=== PATIENT | male | born 1960 | race Two or more races ===

== ENCOUNTER 2016-05-27 08:14 | Observation (INO) | payer OTHER, MEDICAID ==
[~2016-05-27] VITALS: Ht 172.7 cm; Wt 134.6 kg
[~2016-05-27 08:14] MED LIST: ABIL15TA2 PO; ALBU0.086 NEB; ALBU1AER INH; ANDROGEL TOP; BUPR-197 PO; FLUT50SP EACH NARE; HYDR2.5%T PR; HYDR50IN3 IM; LORA-392 PO; MELO7.5 PO; NAPR500 PO; OFLO1DRO8 LEFT EYE; OMEP20TA PO; PERC5TAB12 PO; PRAV20 PO; PRED20 PO; PROM25TA5 PO; ROBA750T3 PO; ROBISYP6 PO; nebulizer
[2016-05-27] MEDS ORDERED: METOPROLOL TARTRATE 25 MG TAB PO PRN (08:45)
[2016-05-27] MEDS ORDERED: ceFAZolin 2 GM PREMIX 50 ML IV SCH (08:45)
[2016-05-27] MEDS ORDERED: SODIUM CHLORID 0.9% 500 ML IV SCH (08:45)
[2016-05-27] MEDS: LACTATED RINGER'S 1000 ML IV SCH (08:45)
[2016-05-27] MEDS ORDERED: INSULIN HUMAN REGULAR 1,000 UNITS/10 ML VIAL SQ PRN (08:45)
[2016-05-27 09:09] LABS: AUTOMATED NEUTROPHIL # 5.6 TH/MM3 (1.8-7.7); BASOPHIL % 0.3 % (0.0-2.0); EOSINOPHIL # 0.1 TH/MM3 (0-0.4); EOSINOPHIL % 1.3 % (0.0-4.0); HEMATOCRIT 41.8 % (39.0-51.0); HEMO FLAGS DIFF FINAL; LYMPH % 31.8 % (9.0-44.0); MEAN CELL VOLUME 80.1 FL (80.0-100.0); MEAN CORPUSCULAR HEMOGLOBIN 26.2 PG (27.0-34.0); MEAN CORPUSCULAR HGB CONC 32.8 % (32.0-36.0); MONO % 8.2 % (0.0-8.0); NEUT % 58.4 % (16.0-70.0); PLATELET COUNT 287 TH/MM3 (150-450); RED BLOOD COUNT 5.22 MIL/MM3 (4.50-5.90); RED CELL DISTRIBUTION WIDTH 15.2 % (11.6-17.2); WHITE BLOOD COUNT 9.5 TH/MM3 (4.0-11.0)
[2016-05-27] MEDS ORDERED: PRAV40TA2 PO (09:12)
[2016-05-27] MEDS ORDERED: MELO7.5T4 PO (09:12)
[2016-05-27] MEDS ORDERED: FLUT1SPR5 EACH NARE (09:12)
[2016-05-27] MEDS ORDERED: PROM25TA5 PO (09:12)
[2016-05-27] MEDS ORDERED: ABIL15TA2 PO (09:12)
[2016-05-27] MEDS ORDERED: LORA-373 PO (09:12)
[2016-05-27] MEDS ORDERED: OXYC1TAB36 PO (09:12)
[2016-05-27] MEDS ORDERED: OMEP20TA PO (09:12)
[2016-05-27] MEDS ORDERED: MELO-1 PO (09:12)
[2016-05-27] MEDS ORDERED: ALBUAER3 INH (09:12)
[2016-05-27] MEDS ORDERED: ALBU.5I NEB ×2 (09:12)
[2016-05-27 09:14] VITALS: BP 155/90; PULSE 73; RESP 16; TEMP 98.9; O2SAT 98
[2016-05-27 09:18] LABS: BICARBONATE 30.2 MEQ/L (21.0-32.0)
[2016-05-27] MEDS ORDERED: MIDAZOLAM HCL 5 MG/5 ML VIAL ONE (09:56)
[2016-05-27] MEDS ORDERED: ACETAMINOPHEN 1000 MG/100 ML VIAL IV ONE (10:38)
[2016-05-27] MEDS ORDERED: SCOPOLAMINE 1.5 MG PATCH ONE (10:40)
[2016-05-27] MEDS ORDERED: APREPITANT 40 MG CAP ONE (10:49)
[2016-05-27] MEDS ORDERED: BUPIVACAINE/EPINEPHRINE 0.25% PF 30 ML VIAL INFIL ONE (11:28)
[2016-05-27] MEDS ORDERED: BUPIVACAINE LIPOSOME PF 1.3% 20 ML VIAL ONE (11:32)
[2016-05-27] MEDS ORDERED: LACTATED RINGER'S 1000 ML INJ 1,000 ML IV ONE (12:43)
[2016-05-27] MEDS ORDERED: NEOSTIGMINE 3 MG/3 ML SYR IV ONE (12:43)
[2016-05-27] MEDS ORDERED: ONDANSETRON HCL 4 MG/2 ML VIAL IV PUSH ONE (12:43)
[2016-05-27] MEDS ORDERED: PROPOFOL 200 MG/20 ML AMP IV ONE (12:43)
[2016-05-27] MEDS ORDERED: BACITRACIN IRRIGATION ONE ×2 (13:00)
[2016-05-27] MEDS ORDERED: IRR IRRIGATION ONE ×2 (13:00)
[2016-05-27] MEDS ORDERED: SODIUM CHLORIDE 0.9% IRRIGATION ONE ×2 (13:00)
--- NOTE | 2016-05-27 13:08 | HHI.PR ---
Immediate Post Op Note Procedure Date: May 27, 2016 Pre Op Diagnosis: (1) Abdominal hernia Post Op Diagnosis: (1) Abdominal hernia Surgeon: Lawrence Rodriguez [employer] Specialist(s): none Procedure: laparoscopic ventral hernia repair with mesh Findings: 2 3cm ventral hernias Complications: none Specimen(s) removed: none Estimated blood loss: 20ml Anesthesia: General, Regional Block Drains: None IVF Patient to: PACU Patient Condition: Good Implant/Devices: SEE IMPLANT LOG (if applicable) Lawrence Rodriguez MD May 27, 2016 13:07
[2016-05-27] MEDS ORDERED: DO NOT ADM ANY ANTICOAGULANT DRUGS XX PRN (13:12)
[2016-05-27] MEDS ORDERED: SODIUM CHLORIDE 0.9% FLUSH 5 ML FLUSH IVF PRN (13:15)
[2016-05-27] MEDS ORDERED: Post-op Orders (for Pharmacy) MISC XX ONE (13:15)
[2016-05-27] MEDS ORDERED: ALBUTEROL SULFATE 90 MCG/ACT HFA 8 GM INHALER INH PRN (13:15)
[2016-05-27] MEDS ORDERED: DEXTROSE 50% IN WATER 50 ML VIAL(D50) IV PUSH PRN (13:15)
[2016-05-27] MEDS ORDERED: GLUCAGON 1 MG/ML VIAL OTHER PRN (13:15)
[2016-05-27] MEDS ORDERED: diphenhydrAMINE HCL 25 MG CAP PO PRN (13:15)
[2016-05-27] MEDS ORDERED: oxyCODONE/ACETAMINOPHEN 5 MG/325 MG TAB PO PRN (13:15)
[2016-05-27] MEDS ORDERED: HYDROmorphone HCL PCA 6 MG/30 ML IV SCH (13:15)
[2016-05-27] MEDS ORDERED: NALOXONE HCL 0.4 MG/ML AMP IV PRN (13:15)
[2016-05-27] MEDS ORDERED: MAGNESIUM HYDROXIDE SUSP 30 ML CUP PO PRN (13:15)
[2016-05-27] MEDS ORDERED: RESP: ALBUTEROL CONC 2.5 MG/0.5 ML NEB NEB PRN (13:15)
[2016-05-27] MEDS ORDERED: *morphine SULFATE 8 MG/ML PERIprocedure ONLY ONE ×2 (13:23→13:53)
[2016-05-27] MEDS ORDERED: fentaNYL CITRATE 250 MCG/5 ML AMP ONE (13:25)
[2016-05-27] MEDS ORDERED: *RESP: ALBUTEROL 2.5 MG/3 ML NEB (PRN) PERIprocedural Use ONLY NEB ONE (13:26)
[2016-05-27] MEDS: SODIUM CHLORIDE 0.9% FLUSH 5 ML FLUSH IVF SCH ×2 (14:00→20:28)
[2016-05-27] MEDS: SODIUM CHLOR 0.9% 1000 ML INJ 1,000 ML IV SCH (14:00)
[2016-05-27] MEDS ORDERED: *ONDANSETRON 4 MG VIAL PERIprocedural Use ONLY ONE (14:21)
[2016-05-27] MEDS: INSULIN NovoLIN REGULAR SUPPLEMENTAL SCALE SQ SCH ×2 (16:00→20:28)
[2016-05-27] MEDS: RESP: ALBUTEROL CONC 2.5 MG/0.5 ML NEB NEB SCH (16:00)
[2016-05-27 20:00] VITALS: BP 129/73; PULSE 70; RESP 18; TEMP 96.4; O2SAT 96
[2016-05-27] MEDS: PCA - TOTAL MG DILAUDID DELIVERED PER SHIFT OTHER SCH (20:22)
[2016-05-27] MEDS: DOCUSATE SODIUM 100 MG CAP PO SCH (20:22)
[2016-05-27] MEDS: ONDANSETRON HCL 4 MG/2 ML VIAL IV PRN (20:28)
[2016-05-27] MEDS ORDERED: ARIPiprazole 15 MG TAB PO SCH (21:00)
--- NOTE | 2016-05-27 21:47 | EKG ---
Date Performed: 05/27/2016 Time Performed: 08:35:06 PTAGE: 55 years EKG: Sinus rhythm NORMAL ECG PREVIOUS TRACING : 08/17/2009 09.59 Compared to prior tracing no significant change DOCTOR: Ron Abernathy Interpretating Date/Time 05/27/2016 21:47:12
[2016-05-28] VITALS: BP_SYST 134; BP_SYST 157; BP_DIAS 72; BP_DIAS 75; PULSE 74; PULSE 76; RESP 18; RESP 20; TEMP 97.4; TEMP 98.9; O2SAT 95; O2SAT 97
[2016-05-28] MEDS: SODIUM CHLOR 0.9% 1000 ML INJ 1,000 ML IV SCH
[2016-05-28] MEDS: ONDANSETRON HCL 4 MG/2 ML VIAL IV PRN ×4 (01:04→14:36)
[2016-05-28 04:00] VITALS: BP 122/75; PULSE 77; RESP 18; TEMP 96.8; O2SAT 96
[2016-05-28] MEDS: PCA - TOTAL MG DILAUDID DELIVERED PER SHIFT OTHER SCH (04:50)
[2016-05-28] MEDS: INSULIN NovoLIN REGULAR SUPPLEMENTAL SCALE SQ SCH ×3 (04:50→16:00)
--- NOTE | 2016-05-28 07:12 | MP ---
cc: [employer] DATE OF OPERATION 05/27/2069 PREOPERATIVE DIAGNOSIS Ventral recurrent hernia. POSTOPERATIVE DIAGNOSIS Ventral recurrent hernia. PROCEDURE Laparoscopic ventral hernia repair with mesh, two hernias 3-cm x 3-cm, epigastric hernia recurrent and a 2.8-cm x 2.8-cm umbilical hernia. ANESTHESIA General and regional TAP block. ATTENDING SURGEON MD Michael HOLLOW CORE DOOR FRAME ASSEMBLER Staff. BLOOD LOSS 20 cc COMPLICATIONS None. FINDINGS A 2.8-cm x 2.8-cm umbilical hernia and a 3-cm x 3cm recurrent epigastric hernia. IMPLANTS Parietex 20-cm x 15-cm composite mesh ProGrip type. INDICATIONS FOR PROCEDURE The patient is a 55-year-old male with a symptomatic ventral hernia. The patient had a previous repair of epigastric hernia that was repaired primarily. However, he had a recurrence of this and had significant pain and discomfort at this area. The patient has no evidence of incarceration and no evidence of bowel obstruction. Requests elective repair. CT scan was performed for evaluation and the patient was noted to have a 2.8-cm x 2.8-cm umbilical hernia as well as a 3-cm irregularly shaped recurrent epigastric hernia at the patient's previous repair. The risks, benefits, alternatives to laparoscopic hernia repair with mesh were explained to the patient prior to the procedure and the patient agreed to undergo the procedure. PROCEDURE After informed consent was obtained, the patient was taken to the operating room, placed in supine position, placed under general endotracheal anesthesia. The patient had a TAP block for pain control, had been placed prior to the procedure. The abdomen was prepped and draped in the usual sterile fashion. Time-out was performed. Abdomen was entered with OptiView technique with the 5-mm camera in the right upper quadrant without difficulty. We then surveyed the abdomen and there is no evidence any complication from entry. There were hernias at the umbilicus as well as the epigastric area noted with a small amount of mentum chronically incarcerated in both of them. We then placed a 10-mm port in the right lower quadrant and a second 5-mm port in the left upper quadrant. We then were able to bluntly take down and reduce some of this fat from the hernia sac. We used scissors with the cautery to divide some of the adhesions on the abdominal wall. We then used the endoshears with cautery to take down some of the preperitoneal fat from around the hernia sac. We then were able to take the ProGrip 15-cm x 20-cm mesh and custom cut this into more of an oval type fashion. This was placed through the 10-port into the abdomen and placed up against the abdominal wall without difficulty. We then were able to tack this down with at least 5 cm of overlap around both hernia sites with a ProTack right near the edge of the mesh, within 1 cm of the edge. We also placed four trans-fascial sutures which were 0 Prolene sutures trans-fascially at the 12 o'clock, 3 o'clock, 6 o'clock and 9 o'clock without difficulty. At this point in time we then able to remove all ports under visualization of the laparoscope and expressed pneumoperitoneum. We closed the skin at the port sites with 4-0 Monocryl and Dermabond, placed Dermabond over the trans-fascial suture sites. The patient was then discontinued from anesthesia and taken to the PACU in stable condition. The patient tolerated the procedure well. No apparent complications. All counts were correct. I was present for the entire procedure. MD ASYA Mathews/TIMUR /3:35 PM /6:52 AM
[2016-05-28 08:00] VITALS: BP 120/75; PULSE 65; RESP 18; TEMP 95.8; O2SAT 95
[2016-05-28] MEDS: RESP: ALBUTEROL CONC 2.5 MG/0.5 ML NEB NEB SCH ×3 (08:00→16:00)
[2016-05-28] MEDS: DOCUSATE SODIUM 100 MG CAP PO SCH (08:17)
[2016-05-28] MEDS: SODIUM CHLORIDE 0.9% FLUSH 5 ML FLUSH IVF SCH (08:18)
[2016-05-28] MEDS: LACTATED RINGER'S 1000 ML IV SCH (08:45)
[2016-05-28] MEDS: oxyCODONE/ACETAMINOPHEN 5 MG/325 MG TAB PO PRN ×2 (09:38→14:35)
[2016-05-28 12:00] VITALS: BP 123/63; PULSE 73; RESP 19; TEMP 96.7; O2SAT 96
[2016-05-28] MEDS ORDERED: ENOXAPARIN SODIUM 30 MG/0.3 ML SYRINGE SQ SCH (12:00)
--- NOTE | 2016-05-28 14:52 | HHI.DS ---
Discharge Summary Admission Date May 27, 2016 at 13:30 Discharge Date: May 28, 2016 Admitting Diagnosis Brief History 55 year old male s/p laparoscopic ventral hernia repair by Dr. Rodriguez. CBC/BMP: 05/27/16 0850 05/27/16 0850 Significant Findings Laboratory Tests Test 05/27/16 08:50 Mean Corpuscular Hemoglobin 26.2 PG (27.0-34.0) Monocytes (%) (Auto) 8.2 % (0.0-8.0) Blood Urea Nitrogen 24 MG/DL (7-18) Creatinine 1.73 MG/DL (0.60-1.30) Estimat Glomerular Filtration 42 ML/MIN (>89) Rate Calcium Level 8.3 MG/DL (8.5-10.1) PE at Discharge Alert and awake; up to chair Cardio: RRR Resp: CTAB Abd: abdomen obese; soft; lap sites c/d/i Hospital Course This is a 55 year old male POD1 lap repair of a ventral hernia. His pain was controlled using oral pain medications. He was able to tolerate a regular diet. He may shower like normal and pat incisions dry. He will follow up in the office in about 7-10 days. Pt Condition on Discharge: Good Discharge Disposition: Discharge Home Jesica Sepulveda May 28, 2016 14:52
[2016-05-28] MEDS ORDERED: OXYC1TAB63 PO (15:35)
[2016-05-28] MEDS ORDERED: ZOFR4TAB PO (15:35)
[2016-05-28 16:00] VITALS: BP 110/59; PULSE 74; RESP 19; TEMP 95.7; O2SAT 92
== END 2016-05-28 18:08 | disposition home or self-care (01) ==
LOC: HSDC 08:14 → HSDI 13:30 → N07B 18:11
PROVIDERS: ADMIT Surgery; ATTEND Surgery
DX: K43.9 Ventral hernia without obstruction or gangrene (principal); K42.9 Umbilical hernia without obstruction or gangrene; J45.909 Unspecified asthma, uncomplicated; E78.5 Hyperlipidemia, unspecified; Z01.810 Encounter for preprocedural cardiovascular examination
CPT/HCPCS: 00752; 49653; 64488; 80048; 82948; 85025; 93005; 94150; 94664; C1781; C9290; G0378; J0131; J0690; J1170; J1650; J2250; J2270; J2405; J2710; J3010; J7030; J7120; J7611; J7613; J8501

== ENCOUNTER → 2016-09-16 | Day surgery (SDC) | payer OTHER, MEDICAID ==
[~2016-09-16] MED LIST changes: +ALBU.5I NEB; -ALBU0.086 NEB; -ALBU1AER INH; +ALBUAER3 INH; +APREPITANT 40 MG CAP ONE; +BUPIVACAINE LIPOSOME PF 1.3% 20 ML VIAL ONE; -BUPR-197 PO; +FLUT1SPR5 EACH NARE; -FLUT50SP EACH NARE; -HYDR2.5%T PR; -HYDR50IN3 IM; +KETOROLAC TROMETHAMINE 30 MG/ML (IVP) VIAL IV PUSH ONE; +LACTATED RINGER'S 1000 ML INJ 1,000 ML ONE; +LORA-373 PO; -LORA-392 PO; +MELO-1 PO; -MELO7.5 PO; +MELO7.5T4 PO; +MIDAZOLAM HCL 2 MG/2 ML VIAL ONE; +MORPHINE SULFATE 4 MG/ML INJ ONE; -NAPR500 PO; -OFLO1DRO8 LEFT EYE; +ONDANSETRON HCL 4 MG/2 ML VIAL IV PUSH ONE; +OXYC1TAB36 PO; +OXYC1TAB63 PO; -PERC5TAB12 PO; -PRAV20 PO; +PRAV40TA2 PO; -PRED20 PO; +PROPOFOL 200 MG/20 ML AMP IV ONE; -ROBA750T3 PO; -ROBISYP6 PO; +SODIUM CHLORIDE 0.9% 20 ML VIAL ONE; +ZOFR4TAB PO; +ceFAZolin 2 GM PREMIX 50 ML ONE
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
== END | disposition home or self-care (01) ==
LOC: ESDC 07:45
PROVIDERS: ATTEND Surgery
DX: K43.9 Ventral hernia without obstruction or gangrene (principal)
CPT/HCPCS: 00752; 49565; 88302; C9290; J0690; J1885; J2250; J2270; J2405; J3010; J7120; J8501

== ENCOUNTER → 2016-10-21 | Day surgery (SDC) | payer OTHER ==
[~2016-10-21] MED LIST changes: -APREPITANT 40 MG CAP ONE; -BUPIVACAINE LIPOSOME PF 1.3% 20 ML VIAL ONE; +BUPIVACAINE/EPINEPHRINE 0.5% 50 ML VIAL ONE; -KETOROLAC TROMETHAMINE 30 MG/ML (IVP) VIAL IV PUSH ONE; +MEPERIDINE HCL 25 MG/ML VIAL ONE; -MORPHINE SULFATE 4 MG/ML INJ ONE; -ONDANSETRON HCL 4 MG/2 ML VIAL IV PUSH ONE; -SODIUM CHLORIDE 0.9% 20 ML VIAL ONE
--- NOTE | 2016-10-21 15:21 | TN ---
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 PROCEDURE 1. Excision with simple closure of left upper extremity lipoma x 8 for two incisions. 2. Excision of cutaneous skin tags left thigh x4. ATTENDING SURGEON Dr. Agustin. DIRECTOR OF REHABILITATIVE SERVICES Staff. ANESTHESIA General, local anesthetic 0.25% Marcaine with epinephrine. COMPLICATIONS None. BLOOD LOSS Less than 10 ccs. INDICATIONS FOR PROCEDURE The patient is a 55-year-old male who is known to me due to multiple hernia repairs. The patient complains of left upper extremity lipomatous lesions he says recently have increased in size. The risks, benefits and alternatives to excision of lipomas were discussed with the patient and he agreed to undergo the procedure. PROCEDURE The patient was taken to the operating room and placed in the supine position, placed under general anesthesia. The patient's left upper extremity was prepped and draped in sterile fashion. Time-out was performed. Local anesthetic was instilled in the planned areas of the lipomas. There was one larger lipoma approximately 2.5 cm in size that was on the patient's biceps area. This was excised with a 15 blade scalpel followed by Metzenbaum scissors for complete excision of the lipoma. This appeared to be benign lipoma. We used Bovie electrocautery for hemostasis and closed the skin with 3-0 Vicryl of 4-0 Monocryl and Dermabond. The second area over the triceps were multiple cutaneous lipomas, all essentially within the same 5 cm area. We did make a 5 cm incision with a 15 blade scalpel in line with the extremity. We used the Metzenbaum scissors and Bovie electrocautery to dissect out all palpable lipomas and there was exactly seven additional lipomas, all of which ranged between 1 and 2 cm. These all appeared benign. At this point in time we had excellent hemostasis. We closed this with interrupted deep dermal 3-0 Vicryl sutures followed by 4-0 Monocryl and Dermabond. At this time we turned our attention towards the left thigh. Four small areas of skin tags were excised using the Bovie electrocautery on cut feature followed by Dermabond. We did anesthetize this area with local anesthetic as well. At this point in time the patient was discontinued from anesthesia and taken to PACU in stable condition. The patient tolerated the procedure well, no apparent complications. All counts were correct and I was present and scrubbed for the entire procedure. MD ASYA Mathews/ABAD /2:55 PM /3:03 PM
== END | disposition home or self-care (01) ==
LOC: ESDC 06:25
PROVIDERS: ATTEND Surgery
DX: D17.22 Benign lipomatous neoplasm of skin and subcutaneous tissue of left arm (principal); L91.8 Other hypertrophic disorders of the skin
CPT/HCPCS: 00400; 11200; 24071; 24075; 88304; J0690; J2250; J3010; J7120; J2175

== ENCOUNTER 2018-01-18 11:14 | Inpatient (IN) ==
[2018-01-18] MEDS ORDERED: Morphine Inj 4 MG/ML Vial IV.PUSH ONE (11:47)
[2018-01-18 12:23] LABS: Baso % (Auto) 0.1 % (0.0-2.0); Eos # (Auto) 0.1 th/mm3 (0.0-0.4); Eos % (Auto) 0.9 % (0.0-4.0); Hematocrit 46.3 % (39.0-51.0); Hemoglobin 14.9 gm/dL (13.0-17.0); Lymph # (Auto) 1.6 th/mm3 (1.0-4.8); Lymph % (Auto) 20.2 % (9.0-44.0); Mean Corpuscular HGB Conc 32.3 % (32.0-36.0); Mean Corpuscular Hemoglobin 25.6 pg (27.0-34.0); Mean Corpuscular Volume 79.4 fL (80.0-100.0); Mean Platelet Volume 7.6 fL (7.0-11.0); Mono # (Auto) 0.7 th/mm3 (0.0-0.9); Mono % (Auto) 8.3 % (0.0-8.0); Neut # (Auto) 5.6 th/mm3 (1.8-7.7); Neut % (Auto) 70.5 % (16.0-70.0); Platelet Count 269 th/mm3 (150-450); Red Blood Count 5.83 mil/mm3 (4.50-5.90); Red Cell Distribution Width 16.3 % (11.6-17.2)
[2018-01-18 12:41] LABS: Anion Gap 8 meq/L (5-15); Aspartate Aminotransferase 29 U/L (15-37); Blood Urea Nitrogen 13 mg/dL (7-18); Calcium 9.3 mg/dL (8.5-10.1); Carbon Dioxide 27.5 meq/L (21.0-32.0); Chloride 102 meq/L (98-107); Glomerular Filtration Rate 45 mL/min (>89); Glucose,Random 83 mg/dL (74-106); Lipase 112 U/L (73-393); Potassium 4.1 meq/L (3.5-5.1); Sodium 137 meq/L (136-145)
[2018-01-18 12:43] LABS: Activated Partial Thrombo Time 26.2 sec (24.3-30.1); Alanine Aminotransferase 45 U/L (12-78); INR 1.1 Ratio
[2018-01-18 12:45] LABS: Alkaline Phosphatase 81 U/L (45-117); Total Protein 8.1 g/dL (6.4-8.2)
--- NOTE | 2018-01-18 13:48 | CT ---
EXAM DATE: 01/18/2018 12:57 PM EDT AGE/SEX: 57 years / Male INDICATIONS: Abdominal pain with weakness and dizziness. CLINICAL DATA: This is the patient's initial encounter. Patient reports that signs and symptoms have been present for 1 day and indicates a pain score of 9/10. MEDICAL/SURGICAL HISTORY: None. . gastric sleeve ORAL CONTRAST: No oral contrast ingested. RADIATION DOSE: 11.22 CTDI (mGy) COMPARISON: [facility], CT ABDOMEN AND PELVIS W/O CONTRAST, 05/25/2016. . TECHNIQUE: Multiple contiguous axial images were obtained through the abdomen and pelvis following b olus infusion of 97 ml Omnipaque 350 (iohexol) nonionic water-soluble contrast as a single exam dos e. No oral contrast ingested. Using automated exposure control and adjustment of the mA and/or kV ac cording to patient size, radiation dose was kept as low as reasonably achievable to obtain optimal di agnostic quality images. DICOM format image data is available electronically for review and comparis on. FINDINGS: LOWER LUNGS: The visualized lower lungs are clear. LIVER: The liver has a homogeneous density without space-occupying lesion. There is no dilation of t he biliary tree. SPLEEN: Homogeneous density without enlargement. PANCREAS: Unremarkable without mass or calcification. KIDNEYS: Kidneys demonstrate symmetrical enhancement and are symmetrical in size without evidence fo r radiopaque renal calculi or hydronephrosis. Multiple small subcentimeter hypodense cystic lesions n oted bilaterally are too small to fully characterize. ADRENAL GLANDS: Unremarkable. AORTA: Lesa-aneurysmal. BOWEL/MESENTERY: Postsurgical features of gastric sleeve procedure. There is a surgical anastomosis in the mid jejunum. There are several loops of mildly distended fluid-filled small bowel in the anter ior mid abdomen with some fecalization. Relative adjacent proximal and distal transition points in th e left lower quadrant. More proximal and distal bowel loops are normal in caliber. No free fluid or d rainable fluid collection. Normal appendix. ABDOMINAL WALL: Intact. RETROPERITONEUM: No evidence of adenopathy in the retrocrural, para-aortic, or deep pelvic regions. BLADDER: Contours are smooth. REPRODUCTIVE: Penile implant in place. BONY STRUCTURES: Degenerative changes of the lumbar spine most prominently at L2-3 with severe disc space narrowing and endplate sclerosis. CONCLUSION: 1. Postsurgical features of prior gastric sleeve procedure with surgical anastomosis in the mid jeju num. Several loops of mid jejunum are mildly distended and nearly adherent to the anterior abdominal wall with adjacent proximal and distal transition points in the left lower quadrant. There is also so me mild fecalization within these loops. Overall, findings are consistent with mild partial small bow el obstruction with some degree of chronicity given the fecalization. No bowel perforation or infarct ion. 2. Additional ancillary findings, as above. Electronically signed by: Rik De La Torre MD 01/18/2018 1:47 PM EDT
[2018-01-18 13:50] LABS: Bacteria,Urine Rare /hpf; Bilirubin,Urine Negative (Negative); Clarity,Urine Clear (Clear); Color,Urine Yellow (Yellw/Straw); Glucose,Urine (UA) Negative (Negative); Hyaline Casts,Urine 1 /lpf (0-3); Leukocyte Esterase,Urine Negative (Negative); Mucus,Urine Few /lpf (Occasional); Nitrite,Urine Negative (Negative); Specific Gravity,Urine 1.018 (1.002-1.035); Squamous Epithelial Cell,Urine 1 /hpf (0-5)
[2018-01-18] MEDS: Sod Chloride 0.9% Inj 1,000 ML IV.CONT SCH (14:46)
--- NOTE | 2018-01-18 14:46 | P.HP ---
History of Present Illness Service: Medicine Primary Care Physician: Ana Ambrosio MD Chief Complaint: Abdominal pain History of Present Illness: The patient is a 57 year old man with a history of small bowel obstruction and multiple abdominal surgeries, the last one 3 months ago, who presents to the ED with abdominal pain. He states that the pain started abrupt at approximately 6: 00 pm last night. He described the pain as constant and feeling like something was "clogged." He was unable to tolerate oral intake as that made the pain worse. The pain continued to get worse until today when he decided to come to the ED. He states that this episode was very similar to last small bowel obstruction. He has had multiple abdominal surgeries, including gastric sleeve , hernia repair, and abdominal mass resection. He has not had a bowel movement or passed gas in 24 hours. He denies nausea, vomiting, diarrhea but states that he hasn't tried to intake much PO since the onset of this pain. CT in the OR revealed several loops of mildly distended bowel nearly adherent to the anterior abdominal wall with adjacent proximal and distal transition points, consistent with small bowel obstruction. Patient will be admitted. PMHx: Thin membrane kidney disease Asthma Hx of small bowel obstruction Depression Lumbar disk disease SurgeryHx: Abdominal hernia repair Abdominal mass resection Gastric Sleeve Ankle repair Penile implant Medications: ProAir inhaler Omeprazole Pravastatin Oxycodone Zofran Topical testosterone Topical ketoconazole Certirizine Fluticasone nasal spray Social Hx: Smoking - 20 pack year history, quit in 1998 Drinking - quit in 1998 Other substances - denies Family History Father - heart disease, diabetes, kidney disease Mother - heart disease, diabetes, kidney disease Sister- heart disease, diabetes, HTN Brother - Kidney disease Estimated Total Length of Stay (Days): 2 Plans for Post Hospital Care: Not yet determined Review of Systems All other systems reviewed negative except as stated in HPI PMFSH - History History Provided By: Patient - Medical History Medical History: Medical History (Last Reviewed 01/18/18 @ 15:13 by Lorin Chang MD) High cholesterol - Surgical History Surgical History: Surgical History (Last Reviewed 01/18/18 @ 15:13 by Lorin Chang MD) Gastric banding status - Tobacco History Smoking Status: Never smoker - Alcohol History How Often Do You Have a Drink Containing Alcohol: Never - Substance Use History Substance History: No History of Abuse - Travel History Recent Travel in the [place] Within the Last 8 Weeks: No Recent Travel Out of the Country Within the Last 8 Weeks: No - Immunization History Tetanus Immunization: <5 Years Medications and Allergies Active Medications: Active Medications Sodium Chloride (Ns Inj) 1,000 mls @ 100 mls/hr IV.CONT .Q10H [facility] Non-Formulary Medication (Omeprazole Magnesium [Prilosec Otc]) 20 mg PO DAILY [facility] Ondansetron HCl (Zofran Inj) 4 mg IV.PUSH Q6H PRN PRN Reason: NAUSEA OR VOMITING Pravastatin Sodium (Pravachol) 20 mg PO DAILY [facility] Sodium Chloride (Ns Flush) 2 ml IV.FLUSH PRN PRN PRN Reason: FLUSH AFTER USING IV ACCESS Tamsulosin HCl (Flomax) 0.4 mg PO DAILY [facility] Allergies Allergy/AdvReac Type Severity Reaction Status Date / Time acetaminophen Allergy Intermediate Nausea/Vomi Verified 01/18/18 11:28 ting hydrocodone Allergy Intermediate Nausea/Vomi Verified 01/18/18 11:28 ting codeine AdvReac Intermediate nausea Verified 01/18/18 11:28 Home Medications Medication Instructions Recorded Confirmed Type omeprazole magnesium [Prilosec OTC] 20 mg PO DAILY 01/18/18 01/18/18 History ondansetron HCl [Zofran] 4 mg PO Q6-8H PRN 01/18/18 01/18/18 History oxycodone 10 mg PO Q3-4H 01/18/18 01/18/18 History pravastatin 20 mg PO DAILY 01/18/18 01/18/18 History tamsulosin [Flomax] 0.4 mg PO DAILY 01/18/18 01/18/18 History Exam Vital signs: Vital Signs 01/18/18 11:18 01/18/18 13:41 Temperature 98.3 F Pulse Rate 71 Respiratory Rate 14 20 Blood Pressure 175/95 H Pulse Oximetry 98 Intake & Output 01/17/18 01/18/18 01/18/18 18:59 06:59 18:59 Weight 108.862 kg Narrative: GENERAL: 57 year old male in NAD, alert and oriented x 3 SKIN: Warm and dry. HEAD: Atraumatic. Normocephalic. EYES: Pupils equal and round. No scleral icterus. No injection or drainage. ENT: No nasal bleeding or discharge. Mucous membranes pink and moist. NECK: Trachea midline. No JVD. CARDIOVASCULAR: Regular rate and rhythm. No S1 or S2, no murmurs, rubs, or gallops RESPIRATORY: No accessory muscle use. Clear to auscultation. Breath sounds equal bilaterally. GASTROINTESTINAL: Bowel sounds absent. Abdomen soft, diffusely tender, mildly distended. Hepatic and splenic margins not palpable. MUSCULOSKELETAL: Extremities without clubbing, cyanosis, or edema. No obvious deformities. NEUROLOGICAL: Awake and alert. No obvious cranial nerve deficits. Motor grossly within normal limits. Five out of 5 muscle strength in the arms and legs. Normal speech. PSYCHIATRIC: Appropriate mood and affect; insight and judgment normal. Results - Labs CBC & Chem 7: 01/18/18 12:10 01/18/18 12:10 Labs: Laboratory Results - last 24 hr 01/18/18 01/18/18 01/18/18 12:10 12:10 12:10 WBC 8.0 RBC 5.83 Hgb 14.9 Hct 46.3 MCV 79.4 L MCH 25.6 L MCHC 32.3 RDW 16.3 Plt Count 269 MPV 7.6 Neut % (Auto) 70.5 H Lymph % (Auto) 20.2 [place] % (Auto) 8.3 H Eos % (Auto) 0.9 Baso % (Auto) 0.1 Neut # (Auto) 5.6 Lymph # (Auto) 1.6 [place] # (Auto) 0.7 Eos # (Auto) 0.1 Baso # (Auto) 0.0 WBC Differential . Differential Comment Auto diff final PT 11.0 INR 1.1 APTT 26.2 Sodium 137 Potassium 4.1 Chloride 102 Carbon Dioxide 27.5 Anion Gap 8 BUN 13 Creatinine 1.60 H Estimated GFR 45 L Random Glucose 83 Calcium 9.3 Total Bilirubin 0.9 AST 29 ALT 45 Alkaline Phosphatase 81 Total Protein 8.1 Albumin 4.0 Lipase 112 Urine Color Urine Clarity Urine pH Ur Specific [place] Urine Protein Urine Glucose (UA) Urine Ketones Urine Occult Blood Urine Nitrate Urine Bilirubin Urine Urobilinogen Ur Leukocyte Esterase Urine RBC Urine WBC Ur Squamous Epith Cells Urine Bacteria Hyaline Casts Urine Mucus Micro UA Comment Ur Microscopic Review Urine Culture Comments 01/18/18 12:45 WBC RBC Hgb Hct MCV MCH MCHC RDW Plt Count MPV Neut % (Auto) Lymph % (Auto) [place] % (Auto) Eos % (Auto) Baso % (Auto) Neut # (Auto) Lymph # (Auto) [place] # (Auto) Eos # (Auto) Baso # (Auto) WBC Differential Differential Comment PT INR APTT Sodium Potassium Chloride Carbon Dioxide Anion Gap BUN Creatinine Estimated GFR Random Glucose Calcium Total Bilirubin AST ALT Alkaline Phosphatase Total Protein Albumin Lipase Urine Color Yellow Urine Clarity Clear Urine pH 5.0 Ur Specific [place] 1.018 Urine Protein 100 H Urine Glucose (UA) Negative Urine Ketones 20 Urine Occult Blood Moderate H Urine Nitrate Negative Urine Bilirubin Negative Urine Urobilinogen Less than 2 Ur Leukocyte Esterase Negative Urine RBC 3 Urine WBC 1 Ur Squamous Epith Cells 1 Urine Bacteria Rare H Hyaline Casts 1 Urine Mucus Few H Micro UA Comment Culture not ind Ur Microscopic Review Not Reportable Urine Culture Comments Culture not ind - Imaging Impressions Abdomen/Pelvis CT 01/18/18 11:47 CONCLUSION: 1. Postsurgical features of prior gastric sleeve procedure with surgical anastomosis in the mid jejunum. Several loops of mid jejunum are mildly distended and nearly adherent to the anterior abdominal wall with adjacent proximal and distal transition points in the left lower quadrant. There is also some mild fecalization within these loops. Overall, findings are consistent with mild partial small bowel obstruction with some degree of chronicity given the fecalization. No bowel perforation or infarction. 2. Additional ancillary findings, as above. Caprini VTE Risk Assessment Caprini VTE Risk Assessment: Moderate/High Risk (score >= 2) Caprini Risk Assessment Model: Point Value = 1 Point Value = 2 Point Value = 3 Point Value = 5 Age 41-60 Minor surgery BMI > 25 kg/m2 Swollen legs Varicose veins or History of unexplained or recurrent spontaneous Oral contraceptives or hormone replacement Sepsis (< 1 month) Serious lung disease, including pneumonia (< 1 month) Abnormal pulmonary function Acute myocardial infarction Congestive heart failure (< 1 month) History of inflammatory bowel disease Medical patient at bed rest Age 61-74 Arthroscopic surgery Major open surgery (> 45 min) Laparoscopic surgery (> 45 min) Malignancy Confined to bed (> 72 hours) Immobilizing plaster cast Central venous access Age >= 75 History of VTE Family history of VTE Factor V Leiden Prothrombin [id number] Lupus anticoagulant Anticardiolipin antibodies Elevated serum homocysteine Heparin-induced thrombocytopenia Other congenital or acquired thrombophilia Stroke (< 1 month) Elective arthroplasty Hip, pelvis, or leg fracture Acute spinal cord injury (< 1 month) Prophylaxis Regimen: Total Risk Factor Score Risk Level Prophylaxis Regimen 0-1 Low Early ambulation 2 Moderate Order ONE of the following: *Sequential Compression Device (SCD) *Heparin 5000 units SQ BID 3-4 Higher Order ONE of the following medications: *Heparin 5000 units SQ TID *Enoxaparin/Lovenox 40 mg SQ daily (WT < 150 kg, CrCl > 30 mL/min) *Enoxaparin/Lovenox 30 mg SQ daily (WT < 150 kg, CrCl > 10-29 mL/min) *Enoxaparin/Lovenox 30 mg SQ BID (WT < 150 kg, CrCl > 30 mL/min) AND/OR *Sequential Compression Device (SCD) 5 or more Highest Order ONE of the following medications: *Heparin 5000 units SQ TID (Preferred with Epidurals) *Enoxaparin/Lovenox 40 mg SQ daily (WT < 150 kg, CrCl > 30 mL/min) *Enoxaparin/Lovenox 30 mg SQ daily (WT < 150 kg, CrCl > 10-29 mL/min) *Enoxaparin/Lovenox 30 mg SQ BID (WT < 150 kg, CrCl > 30 mL/min) AND *Sequential Compression Device (SCD) Assessment and Plan - Plan The patient is a 57 year old man with a history of small bowel obstruction and multiple abdominal surgeries who presents to the ED with a one day history of worsening abdominal pain. CT in the OR revealed several loops of mildly distended bowel nearly adherent to the anterior abdominal wall with adjacent proximal and distal transition points, consistent with small bowel obstruction. He received morphine and zofran in the ED. Small bowel obstruction vs. ileus - IVF, replace lytes as needed - NPO, bowel rest, NG - Pain management - General surgery consult Asthma Continue home meds GERD Hyperlipidemia Hold PO intake Code Status: Full Discussed Condition With: Patient, ED physician
--- NOTE | 2018-01-18 15:15 | ED ---
HPI General Chief complaint: Abdominal Pain Stated complaint: Abd pain/cold & flu Time Seen by Provider: 01/18/18 11:41 Source: patient Mode of arrival: ambulatory Limitations: no limitations History of Present Illness HPI narrative: Patient is a 57-year-old male with history of multiple abdominal surgeries including a gastric sleeve that was performed 2 months ago, who comes in complaining of abdominal pain with nausea and vomiting. He says the pain is in the lower abdomen 2 days ago. He says the pain is been getting worse. He says he had a small bowel movement yesterday that was very hard. He denies fever or chills. Severity is moderate. Related Data Home Medications Medication Instructions Recorded Confirmed omeprazole magnesium [Prilosec OTC] 20 mg PO DAILY 01/18/18 01/18/18 ondansetron HCl [Zofran] 4 mg PO Q6-8H PRN 01/18/18 01/18/18 oxycodone 10 mg PO Q3-4H 01/18/18 01/18/18 pravastatin 20 mg PO DAILY 01/18/18 01/18/18 tamsulosin [Flomax] 0.4 mg PO DAILY 01/18/18 01/18/18 Allergies Allergy/AdvReac Type Severity Reaction Status Date / Time acetaminophen Allergy Intermediate Nausea/Vomi Verified 01/18/18 11:28 ting hydrocodone Allergy Intermediate Nausea/Vomi Verified 01/18/18 11:28 ting codeine AdvReac Intermediate nausea Verified 01/18/18 11:28 Review of Systems ROS: all other systems reviewed are negative Constitutional Denies chills and Denies fever(s) ENT Denies dizziness Cardiovascular Denies chest pain and Denies dyspnea Respiratory Denies cough Gastrointestinal Reports abdominal pain and Reports nausea Musculoskeletal Denies myalgias and Denies arthralgias Integumentary/Breasts Denies sores and Denies wounds Neurologic Denies focal weakness and Denies numbness PMFSH Medical History Medical History High cholesterol (Acute) Surgical History Surgical History Gastric banding status (Acute) Social History Social History Substance History: No History of Abuse Smoking Status: Never smoker How Often Do You Have a Drink Containing Alcohol: Never Recent Travel in [facility] within the Last 8 Weeks: No Recent Out of Country Travel within the Last 8 Weeks: No Immunization History Tetanus Immunization: <5 Years Exam Narrative Exam Narrative: GENERAL: Awake and alert, in no acute distress. SKIN: Focused skin assessment warm/dry. No wounds or signs of infection. HEAD: Atraumatic. Normocephalic. EYES: Pupils equal and round. No scleral icterus. EOMI. ENT: Mucous membranes pink and moist. NECK: Trachea midline. No JVD. CARDIOVASCULAR: Regular rate and rhythm. No murmur appreciated. RESPIRATORY: No accessory muscle use. Clear to auscultation. Breath sounds equal bilaterally. GASTROINTESTINAL: Abdomen soft, nondistended. Tender to palpation of the lower abdomen. No rebound or guarding. MUSCULOSKELETAL: No obvious deformities. No clubbing. No cyanosis. No edema. NEUROLOGICAL: Awake and alert. No obvious cranial nerve deficits. Motor grossly within normal limits. Normal speech. PSYCHIATRIC: Appropriate mood and affect; insight and judgment normal. Course Initial Documented Vital Signs Temperature 98.3 F 01/18/18 11:18 Pulse Rate 71 01/18/18 11:18 Respiratory Rate 14 01/18/18 11:18 Blood Pressure 175/95 H 01/18/18 11:18 Pulse Oximetry 98 01/18/18 11:18 Last Documented Vital Signs Temperature 98.3 F 01/18/18 11:18 Pulse Rate 71 01/18/18 11:18 Respiratory Rate 20 01/18/18 13:41 Blood Pressure 175/95 H 01/18/18 11:18 Pulse Oximetry 98 01/18/18 11:18 Medical Decision Making MDM Narrative Medical decision making narrative: Patient is a 57-year-old male who comes in complaining abdominal pain. Exam shows tenderness to palpation of the lower abdomen. IV established, labs sent. Labs show no acute ab normalities. CT abdomen pelvis performed shows a small bowel obstruction. NG tube placed. Given pain medicine. Patient will be admitted for further management. Medical Screen Exam Complete: Yes Emergency Medical Condition: Yes Differential Diagnosis Differential Diagnosis: Colitis versus diverticulitis versus hernia versus obstruction Medical Records Medical records reviewed: Yes I reviewed the patient's medical records. Lab Data Lab results reviewed: Yes I reviewed the patient's lab results. Result diagrams: 01/18/18 12:10 01/18/18 12:10 Lab Results 01/18/18 01/18/18 01/18/18 Range/Units 12:10 12:10 12:10 WBC 8.0 (4.0-11.0) th/mm3 RBC 5.83 (4.50-5.90) mil/mm3 Hgb 14.9 (13.0-17.0) gm/dL Hct 46.3 (39.0-51.0) % MCV 79.4 L (80.0-100.0) fL MCH 25.6 L (27.0-34.0) pg MCHC 32.3 (32.0-36.0) % RDW 16.3 (11.6-17.2) % Plt Count 269 (150-450) th/mm3 MPV 7.6 (7.0-11.0) fL Neut % (Auto) 70.5 H (16.0-70.0) % Lymph % (Auto) 20.2 (9.0-44.0) % [place] % (Auto) 8.3 H (0.0-8.0) % Eos % (Auto) 0.9 (0.0-4.0) % Baso % (Auto) 0.1 (0.0-2.0) % Neut # (Auto) 5.6 (1.8-7.7) th/mm3 Lymph # (Auto) 1.6 (1.0-4.8) th/mm3 [place] # (Auto) 0.7 (0.0-0.9) th/mm3 Eos # (Auto) 0.1 (0.0-0.4) th/mm3 Baso # (Auto) 0.0 (0.0-0.2) th/mm3 WBC Differential . Differential Comment Auto diff final PT 11.0 (9.8-11.6) sec INR 1.1 Ratio APTT 26.2 (24.3-30.1) sec Sodium 137 (136-145) meq/L Potassium 4.1 (3.5-5.1) meq/L Chloride 102 (98-107) meq/L Carbon Dioxide 27.5 (21.0-32.0) meq/L Anion Gap 8 (5-15) meq/L BUN 13 (7-18) mg/dL Creatinine 1.60 H (0.60-1.30) mg/dL Estimated GFR 45 L (>89) mL/min Random Glucose 83 (74-106) mg/dL Calcium 9.3 (8.5-10.1) mg/dL Total Bilirubin 0.9 (0.2-1.0) mg/dL AST 29 (15-37) U/L ALT 45 (12-78) U/L Alkaline Phosphatase 81 (45-117) U/L Total Protein 8.1 (6.4-8.2) g/dL Albumin 4.0 (3.4-5.0) g/dL Lipase 112 (73-393) U/L Urine Color (Yellw/Straw) Urine Clarity (Clear) Urine pH (5.0-8.5) Ur Specific [place] (1.002-1.035) Urine Protein (Neg-Trace) mg/dL Urine Glucose (UA) (Negative) mg/dL Urine Ketones (Negative) mg/dL Urine Occult Blood (Negative) Urine Nitrate (Negative) Urine Bilirubin (Negative) Urine Urobilinogen (Less than 2) mg/dL Ur Leukocyte Esterase (Negative) Urine RBC (0-3) /hpf Urine WBC (0-5) /hpf Ur Squamous Epith Cells (0-5) /hpf Urine Bacteria (None) /hpf Hyaline Casts (0-3) /lpf Urine Mucus (Occasional) /lpf Micro UA Comment Ur Microscopic Review Urine Culture Comments 01/18/18 Range/Units 12:45 WBC (4.0-11.0) th/mm3 RBC (4.50-5.90) mil/mm3 Hgb (13.0-17.0) gm/dL Hct (39.0-51.0) % MCV (80.0-100.0) fL MCH (27.0-34.0) pg MCHC (32.0-36.0) % RDW (11.6-17.2) % Plt Count (150-450) th/mm3 MPV (7.0-11.0) fL Neut % (Auto) (16.0-70.0) % Lymph % (Auto) (9.0-44.0) % [place] % (Auto) (0.0-8.0) % Eos % (Auto) (0.0-4.0) % Baso % (Auto) (0.0-2.0) % Neut # (Auto) (1.8-7.7) th/mm3 Lymph # (Auto) (1.0-4.8) th/mm3 [place] # (Auto) (0.0-0.9) th/mm3 Eos # (Auto) (0.0-0.4) th/mm3 Baso # (Auto) (0.0-0.2) th/mm3 WBC Differential Differential Comment PT (9.8-11.6) sec INR Ratio APTT (24.3-30.1) sec Sodium (136-145) meq/L Potassium (3.5-5.1) meq/L Chloride (98-107) meq/L Carbon Dioxide (21.0-32.0) meq/L Anion Gap (5-15) meq/L BUN (7-18) mg/dL Creatinine (0.60-1.30) mg/dL Estimated GFR (>89) mL/min Random Glucose (74-106) mg/dL Calcium (8.5-10.1) mg/dL Total Bilirubin (0.2-1.0) mg/dL AST (15-37) U/L ALT (12-78) U/L Alkaline Phosphatase (45-117) U/L Total Protein (6.4-8.2) g/dL Albumin (3.4-5.0) g/dL Lipase (73-393) U/L Urine Color Yellow (Yellw/Straw) Urine Clarity Clear (Clear) Urine pH 5.0 (5.0-8.5) Ur Specific [place] 1.018 (1.002-1.035) Urine Protein 100 H (Neg-Trace) mg/dL Urine Glucose (UA) Negative (Negative) mg/dL Urine Ketones 20 (Negative) mg/dL Urine Occult Blood Moderate H (Negative) Urine Nitrate Negative (Negative) Urine Bilirubin Negative (Negative) Urine Urobilinogen Less than 2 (Less than 2) mg/dL Ur Leukocyte Esterase Negative (Negative) Urine RBC 3 (0-3) /hpf Urine WBC 1 (0-5) /hpf Ur Squamous Epith Cells 1 (0-5) /hpf Urine Bacteria Rare H (None) /hpf Hyaline Casts 1 (0-3) /lpf Urine Mucus Few H (Occasional) /lpf Micro UA Comment Culture not ind Ur Microscopic Review Not Reportable Urine Culture Comments Culture not ind Imaging Data Radiologist's impression: Abdomen/Pelvis CT 01/18/18 11:47 CONCLUSION: 1. Postsurgical features of prior gastric sleeve procedure with surgical anastomosis in the mid jejunum. Several loops of mid jejunum are mildly distended and nearly adherent to the anterior abdominal wall with adjacent proximal and distal transition points in the left lower quadrant. There is also some mild fecalization within these loops. Overall, findings are consistent with mild partial small bowel obstruction with some degree of chronicity given the fecalization. No bowel perforation or infarction. 2. Additional ancillary findings, as above. Discharge Plan Discharge Disposition Patient Disposition: 30 Still Patient Discharge Condition Condition: Stable Discharge Details Diagnosis: Small bowel obstruction Physicians Team ED Provider: Lorin Chang Primary Care Provider: Ana Ambrosio Attending Provider: Desiree Brown Discharge Interventions Interventions: Vital Signs Last Done: 01/18/18 11:18 Status ED Status: Admitted Patient
--- NOTE | 2018-01-18 15:19 | XR ---
EXAM DATE: 01/18/2018 2:27 PM EDT AGE/SEX: 57 years / Male INDICATIONS: Evaluate for free air. Right side pain. CLINICAL DATA: This is the patient's initial encounter. Patient reports that signs and symptoms have been present for 1 day and indicates a pain score of 5/10. MEDICAL/SURGICAL HISTORY: None. . Gastric sleeve COMPARISON: No prior exams available for comparison. FINDINGS: There is an NGT in the stomach. There is no gross free air beneath the diaphragms although examinatio n is limited by portable technique. Lungs are clear. Cardiomediastinal contours are within normal mark its. Bony thorax is intact. CONCLUSION: 1. NGT in the stomach. 2. No gross free air beneath the diaphragms although exam is limited by portable technique. Electronically signed by: Rik De La Torre MD 01/18/2018 3:18 PM EDT
--- NOTE | 2018-01-18 15:34 | P.HP ---
History of Present Illness Primary Care Physician: Ana mAbrosio MD Chief Complaint: Abdominal pain History of Present Illness: The patient is a 57 year old man with a history of small bowel obstruction and multiple abdominal surgeries, the last one 3 months ago, who presents to the ED with abdominal pain. He states that the pain started abrupt at approximately 6: 00 pm last night. He described the pain as constant and feeling like something was "clogged." He was unable to tolerate oral intake as that made the pain worse. The pain continued to get worse until today when he decided to come to the ED. He states that this episode was very similar to last small bowel obstruction. He has had multiple abdominal surgeries, including gastric sleeve , hernia repair, and abdominal mass resection. He has not had a bowel movement or passed gas in 24 hours. He denies nausea, vomiting, diarrhea but states that he hasn't tried to intake much PO since the onset of this pain. CT in the OR revealed several loops of mildly distended bowel nearly adherent to the anterior abdominal wall with adjacent proximal and distal transition points, consistent with small bowel obstruction. Patient will be admitted. PMHx: Thin membrane kidney disease Asthma Hx of small bowel obstruction Depression Lumbar disk disease SurgeryHx: Abdominal hernia repair Abdominal mass resection Gastric Sleeve Ankle repair Penile implant Medications: ProAir inhaler Omeprazole Pravastatin Oxycodone Zofran Topical testosterone Topical ketoconazole Certirizine Fluticasone nasal spray Social Hx: Smoking - 20 pack year history, quit in 1998 Drinking - quit in 1998 Other substances - denies Family History Father - heart disease, diabetes, kidney disease Mother - heart disease, diabetes, kidney disease Sister- heart disease, diabetes, HTN Brother - Kidney disease Inpatient Certification: I certify that the inpatient services were ordered in accordance with Medicare regulations governing the order. This includes certification that hospital inpatient services are reasonable and necessary and in the case of services not specified as inpatient-only under 42 CFR 419.22(n), that they are appropriately provided as inpatient services in accordance to with the 2-midnight benchmark under 43 CFR 412.3(e) Estimated Total Length of Stay (Days): 2 Plans for Post Hospital Care: Not yet determined Review of Systems All other systems reviewed negative except as stated in HPI PMFSH - History History Provided By: Patient - Medical History Medical History: Medical History (Last Reviewed 01/18/18 @ 15:33 by Desiree Brown MD) High cholesterol - Surgical History Surgical History: Surgical History (Last Reviewed 01/18/18 @ 15:33 by Desiree Brown MD) Gastric banding status - Tobacco History Smoking Status: Never smoker - Alcohol History How Often Do You Have a Drink Containing Alcohol: Never - Substance Use History Substance History: No History of Abuse - Travel History Recent Travel in the [place] Within the Last 8 Weeks: No Recent Travel Out of the Country Within the Last 8 Weeks: No - Immunization History Tetanus Immunization: <5 Years Medications and Allergies Active Medications: Active Medications Sodium Chloride (Ns Inj) 1,000 mls @ 100 mls/hr IV.CONT .Q10H JR Last Admin: 01/18/18 14:46 Dose: 100 mls/hr Ondansetron HCl (Zofran Inj) 4 mg IV.PUSH Q6H PRN PRN Reason: NAUSEA OR VOMITING Pantoprazole Sodium (Protonix) 20 mg PO DAILY JR Pravastatin Sodium (Pravachol) 20 mg PO DAILY [facility] Sodium Chloride (Ns Flush) 2 ml IV.FLUSH PRN PRN PRN Reason: FLUSH AFTER USING IV ACCESS Tamsulosin HCl (Flomax) 0.4 mg PO DAILY [facility] Allergies Allergy/AdvReac Type Severity Reaction Status Date / Time acetaminophen Allergy Intermediate Nausea/Vomi Verified 01/18/18 11:28 ting hydrocodone Allergy Intermediate Nausea/Vomi Verified 01/18/18 11:28 ting codeine AdvReac Intermediate nausea Verified 01/18/18 11:28 Home Medications Medication Instructions Recorded Confirmed Type omeprazole magnesium [Prilosec OTC] 20 mg PO DAILY 01/18/18 01/18/18 History ondansetron HCl [Zofran] 4 mg PO Q6-8H PRN 01/18/18 01/18/18 History oxycodone 10 mg PO Q3-4H 01/18/18 01/18/18 History pravastatin 20 mg PO DAILY 01/18/18 01/18/18 History tamsulosin [Flomax] 0.4 mg PO DAILY 01/18/18 01/18/18 History Exam Vital signs: Vital Signs 01/18/18 11:18 01/18/18 13:41 Temperature 98.3 F Pulse Rate 71 Respiratory Rate 14 20 Blood Pressure 175/95 H Pulse Oximetry 98 Intake & Output 1001/18/18 01/18/18 18:59 06:59 18:59 Weight 108.862 kg Narrative: GENERAL: 57 year old male in NAD, alert and oriented x 3 SKIN: Warm and dry. HEAD: Atraumatic. Normocephalic. EYES: Pupils equal and round. No scleral icterus. No injection or drainage. ENT: No nasal bleeding or discharge. Mucous membranes pink and moist. NECK: Trachea midline. No JVD. CARDIOVASCULAR: Regular rate and rhythm. No S1 or S2, no murmurs, rubs, or gallops RESPIRATORY: No accessory muscle use. Clear to auscultation. Breath sounds equal bilaterally. GASTROINTESTINAL: Bowel sounds absent. Abdomen soft, diffusely tender, mildly distended. Hepatic and splenic margins not palpable. MUSCULOSKELETAL: Extremities without clubbing, cyanosis, or edema. No obvious deformities. NEUROLOGICAL: Awake and alert. No obvious cranial nerve deficits. Motor grossly within normal limits. Five out of 5 muscle strength in the arms and legs. Normal speech. PSYCHIATRIC: Appropriate mood and affect; insight and judgment normal. Results - Labs CBC & Chem 7: 01/18/18 12:10 01/18/18 12:10 Labs: Laboratory Results - last 24 hr 01/18/18 01/18/18 01/18/18 12:10 12:10 12:10 WBC 8.0 RBC 5.83 Hgb 14.9 Hct 46.3 MCV 79.4 L MCH 25.6 L MCHC 32.3 RDW 16.3 Plt Count 269 MPV 7.6 Neut % (Auto) 70.5 H Lymph % (Auto) 20.2 [place] % (Auto) 8.3 H Eos % (Auto) 0.9 Baso % (Auto) 0.1 Neut # (Auto) 5.6 Lymph # (Auto) 1.6 [place] # (Auto) 0.7 Eos # (Auto) 0.1 Baso # (Auto) 0.0 WBC Differential . Differential Comment Auto diff final PT 11.0 INR 1.1 APTT 26.2 Sodium 137 Potassium 4.1 Chloride 102 Carbon Dioxide 27.5 Anion Gap 8 BUN 13 Creatinine 1.60 H Estimated GFR 45 L Random Glucose 83 Calcium 9.3 Total Bilirubin 0.9 AST 29 ALT 45 Alkaline Phosphatase 81 Total Protein 8.1 Albumin 4.0 Lipase 112 Urine Color Urine Clarity Urine pH Ur Specific [place] Urine Protein Urine Glucose (UA) Urine Ketones Urine Occult Blood Urine Nitrate Urine Bilirubin Urine Urobilinogen Ur Leukocyte Esterase Urine RBC Urine WBC Ur Squamous Epith Cells Urine Bacteria Hyaline Casts Urine Mucus Micro UA Comment Ur Microscopic Review Urine Culture Comments 01/18/18 12:45 WBC RBC Hgb Hct MCV MCH MCHC RDW Plt Count MPV Neut % (Auto) Lymph % (Auto) [place] % (Auto) Eos % (Auto) Baso % (Auto) Neut # (Auto) Lymph # (Auto) [place] # (Auto) Eos # (Auto) Baso # (Auto) WBC Differential Differential Comment PT INR APTT Sodium Potassium Chloride Carbon Dioxide Anion Gap BUN Creatinine Estimated GFR Random Glucose Calcium Total Bilirubin AST ALT Alkaline Phosphatase Total Protein Albumin Lipase Urine Color Yellow Urine Clarity Clear Urine pH 5.0 Ur Specific [place] 1.018 Urine Protein 100 H Urine Glucose (UA) Negative Urine Ketones 20 Urine Occult Blood Moderate H Urine Nitrate Negative Urine Bilirubin Negative Urine Urobilinogen Less than 2 Ur Leukocyte Esterase Negative Urine RBC 3 Urine WBC 1 Ur Squamous Epith Cells 1 Urine Bacteria Rare H Hyaline Casts 1 Urine Mucus Few H Micro UA Comment Culture not ind Ur Microscopic Review Not Reportable Urine Culture Comments Culture not ind - Imaging Impressions Abdomen/Pelvis CT 01/18/18 11:47 CONCLUSION: 1. Postsurgical features of prior gastric sleeve procedure with surgical anastomosis in the mid jejunum. Several loops of mid jejunum are mildly distended and nearly adherent to the anterior abdominal wall with adjacent proximal and distal transition points in the left lower quadrant. There is also some mild fecalization within these loops. Overall, findings are consistent with mild partial small bowel obstruction with some degree of chronicity given the fecalization. No bowel perforation or infarction. 2. Additional ancillary findings, as above. Chest X-Ray 01/18/18 14:27 CONCLUSION: 1. NGT in the stomach. 2. No gross free air beneath the diaphragms although exam is limited by portable technique. Caprini VTE Risk Assessment Caprini VTE Risk Assessment: Moderate/High Risk (score >= 2) Caprini Risk Assessment Model: Point Value = 1 Point Value = 2 Point Value = 3 Point Value = 5 Age 41-60 Minor surgery BMI > 25 kg/m2 Swollen legs Varicose veins or History of unexplained or recurrent spontaneous Oral contraceptives or hormone replacement Sepsis (< 1 month) Serious lung disease, including pneumonia (< 1 month) Abnormal pulmonary function Acute myocardial infarction Congestive heart failure (< 1 month) History of inflammatory bowel disease Medical patient at bed rest Age 61-74 Arthroscopic surgery Major open surgery (> 45 min) Laparoscopic surgery (> 45 min) Malignancy Confined to bed (> 72 hours) Immobilizing plaster cast Central venous access Age >= 75 History of VTE Family history of VTE Factor V Leiden Prothrombin [id number] Lupus anticoagulant Anticardiolipin antibodies Elevated serum homocysteine Heparin-induced thrombocytopenia Other congenital or acquired thrombophilia Stroke (< 1 month) Elective arthroplasty Hip, pelvis, or leg fracture Acute spinal cord injury (< 1 month) Prophylaxis Regimen: Total Risk Factor Score Risk Level Prophylaxis Regimen 0-1 Low Early ambulation 2 Moderate Order ONE of the following: *Sequential Compression Device (SCD) *Heparin 5000 units SQ BID 3-4 Higher Order ONE of the following medications: *Heparin 5000 units SQ TID *Enoxaparin/Lovenox 40 mg SQ daily (WT < 150 kg, CrCl > 30 mL/min) *Enoxaparin/Lovenox 30 mg SQ daily (WT < 150 kg, CrCl > 10-29 mL/min) *Enoxaparin/Lovenox 30 mg SQ BID (WT < 150 kg, CrCl > 30 mL/min) AND/OR *Sequential Compression Device (SCD) 5 or more Highest Order ONE of the following medications: *Heparin 5000 units SQ TID (Preferred with Epidurals) *Enoxaparin/Lovenox 40 mg SQ daily (WT < 150 kg, CrCl > 30 mL/min) *Enoxaparin/Lovenox 30 mg SQ daily (WT < 150 kg, CrCl > 10-29 mL/min) *Enoxaparin/Lovenox 30 mg SQ BID (WT < 150 kg, CrCl > 30 mL/min) AND *Sequential Compression Device (SCD) Assessment and Plan - Plan The patient is a 57 year old man with a history of small bowel obstruction and multiple abdominal surgeries who presents to the ED with a one day history of worsening abdominal pain. CT in the OR revealed several loops of mildly distended bowel nearly adherent to the anterior abdominal wall with adjacent proximal and distal transition points, consistent with small bowel obstruction. He received morphine and zofran in the ED. Small bowel obstruction vs. ileus - IVF, replace lytes as needed - NPO, bowel rest, NG on low intermittent suction - Pain management - General surgery consult Asthma Continue home meds GERD Hyperlipidemia Hold PO intake Code Status: Full Discussed Condition With: Patient, ED physician
[2018-01-18] MEDS: Morphine Sulfate Inj 2 MG/ML Vial IV.PUSH PRN ×2 (16:53→23:18)
[2018-01-19] MEDS: Sod Chloride 0.9% Inj 1,000 ML IV.CONT SCH ×3 (02:00→21:03)
[2018-01-19 07:04] LABS: White Blood Count 9.6 th/mm3 (4.0-11.0)
[2018-01-19 07:05] LABS: Baso % (Auto) 0.2 % (0.0-2.0); Eos # (Auto) 0.2 th/mm3 (0.0-0.4); Eos % (Auto) 1.9 % (0.0-4.0); Hemoglobin 14.2 gm/dL (13.0-17.0); Lymph # (Auto) 1.9 th/mm3 (1.0-4.8); Lymph % (Auto) 19.8 % (9.0-44.0); Mean Corpuscular HGB Conc 32.4 % (32.0-36.0); Mean Corpuscular Hemoglobin 25.8 pg (27.0-34.0); Mean Corpuscular Volume 79.7 fL (80.0-100.0); Mean Platelet Volume 8.3 fL (7.0-11.0); Mono # (Auto) 0.8 th/mm3 (0.0-0.9); Mono % (Auto) 8.6 % (0.0-8.0); Neut # (Auto) 6.7 th/mm3 (1.8-7.7); Neut % (Auto) 69.5 % (16.0-70.0); Platelet Count 282 th/mm3 (150-450); Red Blood Count 5.52 mil/mm3 (4.50-5.90); Red Cell Distribution Width 16.5 % (11.6-17.2)
[2018-01-19 07:40] LABS: Albumin 3.6 g/dL (3.4-5.0); Anion Gap 10 meq/L (5-15); Aspartate Aminotransferase 23 U/L (15-37); Blood Urea Nitrogen 11 mg/dL (7-18); Calcium 8.8 mg/dL (8.5-10.1); Chloride 103 meq/L (98-107); Glomerular Filtration Rate 47 mL/min (>89); Glucose,Random 75 mg/dL (74-106); Sodium 141 meq/L (136-145)
[2018-01-19 07:41] LABS: Alanine Aminotransferase 39 U/L (12-78)
[2018-01-19 07:44] LABS: Alkaline Phosphatase 81 U/L (45-117); Total Protein 7.6 g/dL (6.4-8.2)
[2018-01-19] MEDS: Pantoprazole Sodium 20 MG DR Tablet PO SCH (08:36)
--- NOTE | 2018-01-19 11:39 | P.PN ---
Subjective Interval history: Follow-up for small bowel obstructionpatient seen and examined, indicates he feels much better. No abdominal pain, passing gas, no nausea, no vomiting. NG tube to low intermittent suction, 350 gastric contents out since yesterday. Anxious to have something to drink. Denies any chest pain, no shortness of breath, no fever. States that he was seen by Dr. Rodriguez yesterday. Physical Exam Vital signs: Vital Signs 01/18/18 13:41 01/18/18 14:19 01/18/18 16:00 Temperature 97.8 F Pulse Rate 71 Respiratory Rate 20 18 Blood Pressure 154/56 H 140/94 H Pulse Oximetry 98 01/18/18 20:00 01/19/18 00:00 01/19/18 08:00 Temperature 97.8 F 97.1 F L 97.7 F Pulse Rate 68 72 68 Respiratory Rate 19 19 17 Blood Pressure 140/76 125/70 145/98 H Pulse Oximetry 98 95 97 Intake & Output 01/18/18 01/19/18 01/19/18 18:59 06:59 18:59 Intake Total 1000 / 1000 1000 / 1000 Output Total 1150 / 1150 Balance -150 / -150 1000 / 1000 Weight 108.862 kg 108.8 kg Intake: IV 1000 / 1000 1000 / 1000 NS Inj 1,000 ML @ 100 mls/hr IV 1000 / 1000 1000 / 1000 .CONT .Q10H JR Rx#:[id number] Oral 0 / 0 Output: Urine 800 / 800 Gastric Drainage 350 / 350 Nasogastric Tube 200 / 200 Right Nare Nasogastric Tube 150 / 150 Other: # Voids 1 Date of Last Bowel Movement 01/17/18 Weight On Admission 108.862 kg Narrative: GENERAL: 57 year old male in NAD, alert and oriented x 3 SKIN: Warm and dry. HEAD: Atraumatic. Normocephalic. EYES: Pupils equal and round. No scleral icterus. No injection or drainage. ENT: No nasal bleeding or discharge. Mucous membranes pink and moist. NECK: Trachea midline. No JVD. CARDIOVASCULAR: Regular rate and rhythm. No S1 or S2, no murmurs, rubs, or gallops RESPIRATORY: No accessory muscle use. Clear to auscultation. Breath sounds equal bilaterally. GASTROINTESTINAL: Abdomen is obese, soft, nontender, bowel sounds normoactive x4. NG tube to low intermittent suction. MUSCULOSKELETAL: Extremities without clubbing, cyanosis, or edema. No obvious deformities. NEUROLOGICAL: Awake and alert. No obvious cranial nerve deficits. Motor grossly within normal limits. Five out of 5 muscle strength in the arms and legs. Normal speech. PSYCHIATRIC: Appropriate mood and affect; insight and judgment normal. Results - Labs CBC & Chem 7: 01/19/18 05:46 01/19/18 05:46 Laboratory Results - last 24 hr 01/18/18 01/18/18 01/18/18 12:10 12:10 12:10 WBC 8.0 RBC 5.83 Hgb 14.9 Hct 46.3 MCV 79.4 L MCH 25.6 L MCHC 32.3 RDW 16.3 Plt Count 269 MPV 7.6 Neut % (Auto) 70.5 H Lymph % (Auto) 20.2 [place] % (Auto) 8.3 H Eos % (Auto) 0.9 Baso % (Auto) 0.1 Neut # (Auto) 5.6 Lymph # (Auto) 1.6 [place] # (Auto) 0.7 Eos # (Auto) 0.1 Baso # (Auto) 0.0 WBC Differential . Differential Comment Auto diff final PT 11.0 INR 1.1 APTT 26.2 Sodium 137 Potassium 4.1 Chloride 102 Carbon Dioxide 27.5 Anion Gap 8 BUN 13 Creatinine 1.60 H Estimated GFR 45 L Random Glucose 83 Calcium 9.3 Total Bilirubin 0.9 AST 29 ALT 45 Alkaline Phosphatase 81 Total Protein 8.1 Albumin 4.0 Lipase 112 Urine Color Urine Clarity Urine pH Ur Specific [place] Urine Protein Urine Glucose (UA) Urine Ketones Urine Occult Blood Urine Nitrate Urine Bilirubin Urine Urobilinogen Ur Leukocyte Esterase Urine RBC Urine WBC Ur Squamous Epith Cells Urine Bacteria Hyaline Casts Urine Mucus Micro UA Comment Ur Microscopic Review Urine Culture Comments 01/18/18 01/19/18 01/19/18 12:45 05:46 05:46 WBC 9.6 RBC 5.52 Hgb 14.2 Hct 44.0 MCV 79.7 L MCH 25.8 L MCHC 32.4 RDW 16.5 Plt Count 282 MPV 8.3 Neut % (Auto) 69.5 Lymph % (Auto) 19.8 [place] % (Auto) 8.6 H Eos % (Auto) 1.9 Baso % (Auto) 0.2 Neut # (Auto) 6.7 Lymph # (Auto) 1.9 [place] # (Auto) 0.8 Eos # (Auto) 0.2 Baso # (Auto) 0.0 WBC Differential . Differential Comment Auto diff final PT INR APTT Sodium 141 Potassium 4.0 Chloride 103 Carbon Dioxide 28.0 Anion Gap 10 BUN 11 Creatinine 1.53 H Estimated GFR 47 L Random Glucose 75 Calcium 8.8 Total Bilirubin 0.8 AST 23 ALT 39 Alkaline Phosphatase 81 Total Protein 7.6 Albumin 3.6 Lipase Urine Color Yellow Urine Clarity Clear Urine pH 5.0 Ur Specific [place] 1.018 Urine Protein 100 H Urine Glucose (UA) Negative Urine Ketones 20 Urine Occult Blood Moderate H Urine Nitrate Negative Urine Bilirubin Negative Urine Urobilinogen Less than 2 Ur Leukocyte Esterase Negative Urine RBC 3 Urine WBC 1 Ur Squamous Epith Cells 1 Urine Bacteria Rare H Hyaline Casts 1 Urine Mucus Few H Micro UA Comment Culture not ind Ur Microscopic Review Not Reportable Urine Culture Comments Culture not ind - Imaging Impressions Abdomen/Pelvis CT 01/18/18 11:47 CONCLUSION: 1. Postsurgical features of prior gastric sleeve procedure with surgical anastomosis in the mid jejunum. Several loops of mid jejunum are mildly distended and nearly adherent to the anterior abdominal wall with adjacent proximal and distal transition points in the left lower quadrant. There is also some mild fecalization within these loops. Overall, findings are consistent with mild partial small bowel obstruction with some degree of chronicity given the fecalization. No bowel perforation or infarction. 2. Additional ancillary findings, as above. Chest X-Ray 01/18/18 14:27 CONCLUSION: 1. NGT in the stomach. 2. No gross free air beneath the diaphragms although exam is limited by portable technique. Assessment and Plan - Plan The patient is a 57 year old man with a history of small bowel obstruction and multiple abdominal surgeries who presents to the ED with a one day history of worsening abdominal pain. CT in the OR revealed several loops of mildly distended bowel nearly adherent to the anterior abdominal wall with adjacent proximal and distal transition points, consistent with small bowel obstruction. He received morphine and zofran in the ED. Small bowel obstruction vs. ileus Sx improved today, + flatus, abd. with minimal distension - IVF, replace lytes as needed - NPO, bowel rest, NG on low intermittent suction - Pain management - General surgery consult-was seen by Dr. Gamenthaler yesterday -We will repeat KUB today, if improved, may clamp NG tube and give ice chips. Asthma -stable -duonebs prn added GERD Hyperlipidemia -on hold at this time. Acute on chronic kidney disease creat 1.6, today 1.53 -continue with hydration -monitor BMP -avoid nephrotoxic agents DVT prophylaxispatient is ambulatory Code Status: Full code Discussed Condition With: RN, pt. Discharge Planning: Poss dc tomorrow if sx continue to improve
--- NOTE | 2018-01-19 15:11 | XR ---
EXAM DATE: 01/19/2018 12:00 AM EDT AGE/SEX: 57 years / Male INDICATIONS: Abdominal pain CLINICAL DATA: This is the patient's subsequent encounter. Patient reports that signs and symptoms h ave been present for 3 days and indicates a pain score of 2/10. MEDICAL/SURGICAL HISTORY: None. . Gastric sleeve COMPARISON: [facility] – [place], CT ABDOMEN & PELVIS W CONTRAST, 01/18/2018. . FINDINGS: Enteric tube is noted in the distal tip overlies the upper stomach, side port distal esophagus. No d ilated loops of bowel are seen. Osseous structures are intact. CONCLUSION: The enteric tube should be advanced. Electronically signed by: Emmanuel Dover MD 01/19/2018 3:10 PM EDT
--- NOTE | 2018-01-19 15:44 | P.PNGS ---
Subjective Interval history: Feeling much better today Wants NGT out Ambulating in the halls Physical Exam Vital signs: Vital Signs 01/18/18 16:00 01/18/18 20:00 01/19/18 00:00 Temperature 97.8 F 97.8 F 97.1 F L Pulse Rate 71 68 72 Respiratory Rate 18 19 19 Blood Pressure 140/94 H 140/76 125/70 Pulse Oximetry 98 98 95 01/19/18 08:00 01/19/18 12:00 Temperature 97.7 F 97.6 F Pulse Rate 68 69 Respiratory Rate 17 18 Blood Pressure 145/98 H 170/96 H Pulse Oximetry 97 98 Intake & Output 01/18/18 01/19/18 01/19/18 18:59 06:59 18:59 Intake Total 1000 / 1000 1000 / 1000 Output Total 1150 / 1150 Balance -150 / -150 1000 / 1000 Weight 108.862 kg 108.8 kg Intake: IV 1000 / 1000 1000 / 1000 NS Inj 1,000 ML @ 100 mls/hr IV 1000 / 1000 1000 / 1000 .CONT .Q10H JR Rx#:[id number] Oral 0 / 0 Output: Urine 800 / 800 Gastric Drainage 350 / 350 Nasogastric Tube 200 / 200 Right Nare Nasogastric Tube 150 / 150 Other: # Voids 1 Date of Last Bowel Movement 01/17/18 Weight On Admission 108.862 kg Narrative: Alert and awake Abd: soft; non tender NGT clamped Results - Labs 01/19/18 05:46 01/19/18 05:46 Laboratory Results - last 24 hr 01/19/18 01/19/18 05:46 05:46 WBC 9.6 RBC 5.52 Hgb 14.2 Hct 44.0 MCV 79.7 L MCH 25.8 L MCHC 32.4 RDW 16.5 Plt Count 282 MPV 8.3 Neut % (Auto) 69.5 Lymph % (Auto) 19.8 [place] % (Auto) 8.6 H Eos % (Auto) 1.9 Baso % (Auto) 0.2 Neut # (Auto) 6.7 Lymph # (Auto) 1.9 [place] # (Auto) 0.8 Eos # (Auto) 0.2 Baso # (Auto) 0.0 WBC Differential . Differential Comment Auto diff final Sodium 141 Potassium 4.0 Chloride 103 Carbon Dioxide 28.0 Anion Gap 10 BUN 11 Creatinine 1.53 H Estimated GFR 47 L Random Glucose 75 Calcium 8.8 Total Bilirubin 0.8 AST 23 ALT 39 Alkaline Phosphatase 81 Total Protein 7.6 Albumin 3.6 - Imaging Imaging: ITS Impressions Abdomen/Pelvis CT 01/18/18 11:47 CONCLUSION: 1. Postsurgical features of prior gastric sleeve procedure with surgical anastomosis in the mid jejunum. Several loops of mid jejunum are mildly distended and nearly adherent to the anterior abdominal wall with adjacent proximal and distal transition points in the left lower quadrant. There is also some mild fecalization within these loops. Overall, findings are consistent with mild partial small bowel obstruction with some degree of chronicity given the fecalization. No bowel perforation or infarction. 2. Additional ancillary findings, as above. Chest X-Ray 01/18/18 14:27 CONCLUSION: 1. NGT in the stomach. 2. No gross free air beneath the diaphragms although exam is limited by portable technique. Abdomen X-Ray 01/19/18 00:00 CONCLUSION: The enteric tube should be advanced. Assessment and Plan - Assessment (1) Small bowel obstruction Code(s): K56.609 - Unspecified intestinal obstruction, unspecified as to partial versus complete obstruction Status: Acute Plan: 57 year old male with abdominal pain; radiographic findings of SBO -Exam improved today -KUB improved -DC NGT -Continue clears for tonight -Plan to advance diet in the morning if no issues - Attending Attestation The exam, history, and the medical decision-making described in the above note were completed with the assistance of the mid-level provider. I reviewed and agree with the findings presented. I attest that I had a [id number] encounter with the patient on the same day, and personally performed and documented my assessment and findings in the medical record. adhesive SBO, resolving pain better trial of clears will follow
--- NOTE | 2018-01-19 19:43 | MB ---
cc: Lawrence Rodriguez MD DATE: 01/18/2018 REASON FOR CONSULTATION: Small-bowel obstruction. REQUESTING Jan Gabriel DO HISTORY OF PRESENT ILLNESS: The patient is a 57-year-old male known to me, who was admitted to [facility] for a small bowel obstruction. The patient is 2 months status post gastric sleeve surgery by Dr. Sanchez at [facility] for weight loss. The patient states he has lost some weight, although he states this is minimal and thinks it is due to his diet he has been on. The patient states he developed last night significant abdominal pain, crampy, wave-like pain that he has had once before in the setting of a bowel obstruction. He denies feeling any hernia or bulge or any other symptoms. He denies any nausea or vomiting currently. He has not had a bowel movement or passed flatus today. He denies fevers, chills or night sweats. The patient did undergo evaluation with a CT scan of the abdomen and pelvis, which did show postsurgical features of prior gastric sleeve procedure, several loops of jejunum were mildly distended, concerning for ileus versus small bowel obstruction. The patient was admitted and treated nonoperatively for small bowel obstruction. General surgery was consulted. REVIEW OF SYSTEMS: A 12-point review of systems was conducted with the patient and is negative except the pertinent positives mentioned above in history of present illness. PAST MEDICAL HISTORY: Kidney disease, asthma, history of small-bowel obstruction, history of depression, history of obesity, lumbar disk disease. PAST SURGICAL HISTORY: Multiple hernia repairs, adhesiolysis for small-bowel obstruction, abdominal mass resection, gastric sleeve ankle surgery, penile implant. ALLERGIES: TYLENOL, HYDROCODONE, CODEINE. MEDICATIONS: 1. ProAir. 2. Omeprazole. 3. Oxycodone. 4. Zofran. 5. Pravastatin. 6. Testosterone. 7. Ketoconazole. 8. Cetirizine. 9. Fluticasone nasal spray. SOCIAL HISTORY: The patient has a history of tobacco use, quit in 1998. Denies alcohol, illicit drug use or any addictive history. FAMILY HISTORY: Reviewed and noncontributory. PHYSICAL EXAMINATION: VITAL SIGNS: 98.3, heart rate 71, blood pressure 175/95, O2 saturation 98%. GENERAL: The patient is an overweight, but not obese male in no acute distress. HEENT: His head is normocephalic, atraumatic. Pupils are round and uncomfortable. Eyes, sclerae are anicteric. Oral cavity is clear. Airway is patent. NECK: Supple. No JVD. No lymphadenopathy. LUNGS: Breath sounds present bilaterally, nonlabored breathing pattern. HEART: Regular rate and rhythm. PMI is nondisplaced. No murmurs on auscultation. ABDOMEN: Soft. He is focally tender in the periumbilical area without peritonitis or rebound tenderness. Normal bowel sounds. No surgical hernias other than some surgical scars that appear to be well healed. EXTREMITIES: No clubbing, cyanosis or edema. NEUROLOGIC: The patient is alert and oriented x3. Mood, judgment, and insight are intact. Nonfocal peripheral exam. Cranial nerves 2-12 are grossly intact. LABORATORY DATA: His white blood cell count 8.0, hemoglobin 14.9. Imaging does show possible early or partial bowel obstruction on CT scan. ASSESSMENT AND PLAN: The patient is a 57-year-old male, status post multiple laparoscopic and open surgical procedures. The patient does likely have a partial small-bowel obstruction and I agree with the current management with initial therapy of nonoperative management. I discussed this with the patient and he is in agreement with the plan. We will follow along with the patient. Thank you very much for this consultation. MD ASYA Mathews/ct , 06:21 PM , 06:31 PM
[2018-01-20] MEDS ORDERED: Benzonatate 100 MG Capsule PO PRN (01:06)
[2018-01-20] MEDS: Sod Chloride 0.9% Inj 1,000 ML IV.CONT SCH ×2 (04:11→06:02)
[2018-01-20 08:12] LABS: Calcium 8.1 mg/dL (8.5-10.1); Carbon Dioxide 28.6 meq/L (21.0-32.0)
[2018-01-20] MEDS: Pantoprazole Sodium 20 MG DR Tablet PO SCH (09:03)
--- NOTE | 2018-01-20 11:08 | P.PN ---
Subjective Interval history: Follow-up for small bowel obstructionpatient seen and examined, ambulating around unit. Passing gas, no BM, given MOM. NGT out and has been tolerating clears ok. No n/v. Abd. soft. Anxious to go home but understands he has to have BM first. Was seen by surgery this morning. Physical Exam Vital signs: Vital Signs 01/19/18 12:00 01/19/18 15:57 01/19/18 16:00 Temperature 97.6 F 98.6 F Pulse Rate 69 74 64 Respiratory Rate 18 18 Blood Pressure 170/96 H 142/87 H 142/74 H Pulse Oximetry 98 99 01/19/18 20:00 01/19/18 23:51 01/20/18 08:00 Temperature 98.1 F 97.1 F L 98.0 F Pulse Rate 67 76 66 Respiratory Rate 19 19 18 Blood Pressure 153/90 H 115/61 108/71 Pulse Oximetry 99 98 97 Intake & Output 01/19/18 01/20/18 01/20/18 18:59 06:59 18:59 Intake Total 1000 / 1000 2380 / 2380 476 / 476 Balance 1000 / 1000 2380 / 2380 476 / 476 Weight 110.2 kg Intake: IV 1000 / 1000 1000 / 1000 476 / 476 NS Inj 1,000 ML @ 100 mls/hr IV 1000 / 1000 1000 / 1000 476 / 476 .CONT .Q10H JR Rx#:[id number] Oral 1380 / 1380 Other: # Voids 3 Narrative: GENERAL: 57 year old male in NAD, alert and oriented x 3 SKIN: Warm and dry. HEAD: Atraumatic. Normocephalic. EYES: Pupils equal and round. No scleral icterus. No injection or drainage. ENT: No nasal bleeding or discharge. Mucous membranes pink and moist. NECK: Trachea midline. No JVD. CARDIOVASCULAR: Regular rate and rhythm. No S1 or S2, no murmurs, rubs, or gallops RESPIRATORY: No accessory muscle use. Clear to auscultation. Breath sounds equal bilaterally. GASTROINTESTINAL: Abdomen is obese, soft, nontender, bowel sounds normoactive x4. MUSCULOSKELETAL: Extremities without clubbing, cyanosis, or edema. No obvious deformities. NEUROLOGICAL: Awake and alert. No obvious cranial nerve deficits. Motor grossly within normal limits. Five out of 5 muscle strength in the arms and legs. Normal speech. PSYCHIATRIC: Appropriate mood and affect; insight and judgment normal. Results - Labs CBC & Chem 7: 01/19/18 05:46 01/20/18 05:39 Laboratory Results - last 24 hr 01/20/18 05:39 Sodium 140 Potassium 4.0 Chloride 105 Carbon Dioxide 28.6 Anion Gap 6 BUN 9 Creatinine 1.09 Estimated GFR 70 L Random Glucose 71 L Calcium 8.1 L - Imaging Impressions Abdomen X-Ray 01/19/18 00:00 CONCLUSION: The enteric tube should be advanced. Assessment and Plan - Plan The patient is a 57 year old man with a history of small bowel obstruction and multiple abdominal surgeries who presents to the ED with a one day history of worsening abdominal pain. CT in the OR revealed several loops of mildly distended bowel nearly adherent to the anterior abdominal wall with adjacent proximal and distal transition points, consistent with small bowel obstruction. He received morphine and zofran in the ED. Small bowel obstruction vs. ileus Sx improved today, + flatus, abd. with minimal distension - IVF, replace lytes as needed -Appreciate surgical input, NG tube out this morning, was given milk of mag. -Abdominal x-ray improved, passing gas but no BM yet. -Continue with clear liquids for now. Asthma -stable -duonebs prn added GERD Hyperlipidemia -on hold at this time. Acute on chronic kidney disease creat 1.6, today 1.09 -Renal function improved, okay to DC IV fluids Continue with p.o. fluids DVT prophylaxispatient is ambulatory Discussed with LEIDY Sepulveda, she will reevaluate this afternoon, if he has BM possible discharge. Code Status: Full code Discussed Condition With: RN, patient, surgery LEIDY Mooney Discharge Planning: Poss dc today if he has BM and surgery clears
[2018-01-20 12:38] VITALS: BP 115/71; PULSE 82; RESP 17; TEMP 98.3; O2SAT 98
[2018-01-20] MEDS ORDERED: Bisacodyl 10 MG Supp RECTAL ONE (14:30)
--- NOTE | 2018-01-20 15:35 | P.PNGS ---
Subjective Interval history: Tolerated breakfast and lunch +BM Physical Exam Vital signs: Vital Signs 01/19/18 15:57 01/19/18 16:00 01/19/18 20:00 Temperature 98.6 F 98.1 F Pulse Rate 74 64 67 Respiratory Rate 18 19 Blood Pressure 142/87 H 142/74 H 153/90 H Pulse Oximetry 99 99 01/19/18 23:51 01/20/18 08:00 01/20/18 12:00 Temperature 97.1 F L 98.0 F 98.3 F Pulse Rate 76 66 82 Respiratory Rate 19 18 17 Blood Pressure 115/61 108/71 115/71 Pulse Oximetry 98 97 98 Intake & Output 01/19/18 01/20/18 01/20/18 18:59 06:59 18:59 Intake Total 1000 / 1000 2380 / 2380 476 / 476 Balance 1000 / 1000 2380 / 2380 476 / 476 Weight 110.2 kg Intake: IV 1000 / 1000 1000 / 1000 476 / 476 NS Inj 1,000 ML @ 100 mls/hr IV 1000 / 1000 1000 / 1000 476 / 476 .CONT .Q10H JR Rx#:[id number] Oral 1380 / 1380 Other: # Voids 3 Narrative: Alert and awake Abd: soft; non tender non distended Results - Labs 01/19/18 05:46 01/20/18 05:39 Laboratory Results - last 24 hr 01/20/18 05:39 Sodium 140 Potassium 4.0 Chloride 105 Carbon Dioxide 28.6 Anion Gap 6 BUN 9 Creatinine 1.09 Estimated GFR 70 L Random Glucose 71 L Calcium 8.1 L - Imaging Imaging: ITS Impressions Abdomen/Pelvis CT 01/18/18 11:47 CONCLUSION: 1. Postsurgical features of prior gastric sleeve procedure with surgical anastomosis in the mid jejunum. Several loops of mid jejunum are mildly distended and nearly adherent to the anterior abdominal wall with adjacent proximal and distal transition points in the left lower quadrant. There is also some mild fecalization within these loops. Overall, findings are consistent with mild partial small bowel obstruction with some degree of chronicity given the fecalization. No bowel perforation or infarction. 2. Additional ancillary findings, as above. Chest X-Ray 01/18/18 14:27 CONCLUSION: 1. NGT in the stomach. 2. No gross free air beneath the diaphragms although exam is limited by portable technique. Abdomen X-Ray 01/19/18 00:00 CONCLUSION: The enteric tube should be advanced. Assessment and Plan - Assessment (1) Small bowel obstruction Code(s): K56.609 - Unspecified intestinal obstruction, unspecified as to partial versus complete obstruction Status: Acute Plan: 57 year old male with abdominal pain; radiographic findings of SBO -Exam now benign -Tolerating regular diet -+BM -GS clear for DC - Attending Attestation The exam, history, and the medical decision-making described in the above note were completed with the assistance of the mid-level provider. I reviewed and agree with the findings presented. I attest that I had a mryy-gf-wymh encounter with the patient on the same day, and personally performed and documented my assessment and findings in the medical record. SBO resolving abdomen soft, nttp can Dc if has BM and tolerates soft diet d/w patient at bedside
--- NOTE | 2018-01-20 15:44 | P.DS ---
Date of admission: 01/18/18 14:29 Primary care physician: Ana Ambrosio MD Attending physician on discharge: Moo Gabriel Anticipated date of discharge: 01/20/18 Brief History from admission: The patient is a 57 year old man with a history of small bowel obstruction and multiple abdominal surgeries, the last one 3 months ago, who presents to the ED with abdominal pain. He states that the pain started abrupt at approximately 6: 00 pm last night. He described the pain as constant and feeling like something was "clogged." He was unable to tolerate oral intake as that made the pain worse. The pain continued to get worse until today when he decided to come to the ED. He states that this episode was very similar to last small bowel obstruction. He has had multiple abdominal surgeries, including gastric sleeve , hernia repair, and abdominal mass resection. He has not had a bowel movement or passed gas in 24 hours. He denies nausea, vomiting, diarrhea but states that he hasn't tried to intake much PO since the onset of this pain. CT in the OR revealed several loops of mildly distended bowel nearly adherent to the anterior abdominal wall with adjacent proximal and distal transition points, consistent with small bowel obstruction. Patient will be admitted. DS: Summary Hospital Course: The patient is a 57 year old man with a history of small bowel obstruction and multiple abdominal surgeries who presents to the ED with a one day history of worsening abdominal pain. CT in the OR revealed several loops of mildly distended bowel nearly adherent to the anterior abdominal wall with adjacent proximal and distal transition points, consistent with small bowel obstruction. He received morphine and zofran in the ED. patient admitted for small bowel obstruction versus ileus. Was put on IV fluids, n.p.o. status, NG tube to intermittent suction. General surgery consulted. Pt. was evaluated, treated non operative. The next day, patient had improvement of symptoms. Abdominal distention was improved, passing flatus. No more pain, no nausea, no vomiting. Repeat KUB showed resolution. He was given milk of magnesium and advanced to clear liquids. Patient required extra lactulose as well as suppository and finally had a bowel movement. He was advanced to regular diet. Renal function improved. Patient was cleared for discharge. Patient was discharged home in stable condition. - Time Spent with Patient Total time spent providing and/or coordinating discharge services: Less than 30 minutes - Quality: VTE Deep Vein Thrombosis/Pulmonary Embolism Present on Admission: No Exam Vital signs: Vital Signs 01/19/18 15:57 01/19/18 16:00 01/19/18 20:00 Temperature 98.6 F 98.1 F Pulse Rate 74 64 67 Respiratory Rate 18 19 Blood Pressure 142/87 H 142/74 H 153/90 H Pulse Oximetry 99 99 01/19/18 23:51 01/20/18 08:00 01/20/18 12:00 Temperature 97.1 F L 98.0 F 98.3 F Pulse Rate 76 66 82 Respiratory Rate 19 18 17 Blood Pressure 115/61 108/71 115/71 Pulse Oximetry 98 97 98 Intake & Output 01/19/18 01/20/18 01/20/18 18:59 06:59 18:59 Intake Total 1000 / 1000 2380 / 2380 476 / 476 Balance 1000 / 1000 2380 / 2380 476 / 476 Weight 110.2 kg Intake: IV 1000 / 1000 1000 / 1000 476 / 476 NS Inj 1,000 ML @ 100 mls/hr IV 1000 / 1000 1000 / 1000 476 / 476 .CONT .Q10H JR Rx#:[id number] Oral 1380 / 1380 Other: # Voids 3 Results Procedures completed during hospitalization: NONE Labs on day of discharge: Labs from last 24 hours 01/20/18 05:39 Sodium 140 Potassium 4.0 Chloride 105 Carbon Dioxide 28.6 Anion Gap 6 BUN 9 Creatinine 1.09 Estimated GFR 70 L Random Glucose 71 L Calcium 8.1 L - Impressions ITS Impressions Abdomen/Pelvis CT 01/18/18 11:47 CONCLUSION: 1. Postsurgical features of prior gastric sleeve procedure with surgical anastomosis in the mid jejunum. Several loops of mid jejunum are mildly distended and nearly adherent to the anterior abdominal wall with adjacent proximal and distal transition points in the left lower quadrant. There is also some mild fecalization within these loops. Overall, findings are consistent with mild partial small bowel obstruction with some degree of chronicity given the fecalization. No bowel perforation or infarction. 2. Additional ancillary findings, as above. Chest X-Ray 01/18/18 14:27 CONCLUSION: 1. NGT in the stomach. 2. No gross free air beneath the diaphragms although exam is limited by portable technique. Abdomen X-Ray 01/19/18 00:00 CONCLUSION: The enteric tube should be advanced. Discharge Plan - Discharge Disposition Patient Disposition: 01 Discharge Home - Discharge Condition Condition: Stable - Discharge Order Discharge Orders: Discharge Order (Routine); Ordered 01/20/18 Ordered By: Minoo Bradford - Discharge Details Anticipated Discharge Date: 01/20/18 Discharge Comment: DISCHARGE AFTER HE EATS DINNER - Physicians Team Primary Care Provider: Ana Ambrosio Attending Provider: Moo Gabriel Other Providers: Lawrence Rodriguez MD ; Anand Michel
== END 2018-01-20 18:19 | disposition home or self-care (01) ==
LOC: NEPE 11:14 → NEDA 14:29 → N07 16:25
PROVIDERS: ADMIT Hospitalist; ATTEND Hospitalist

== ENCOUNTER 2018-03-30 05:08 | Inpatient (IN) ==
[2018-03-30] MEDS ORDERED: Metoprolol Tartrate 25 MG Tablet PO ONE (05:26)
[2018-03-30] MEDS ORDERED: Chlorhexidine Gluconate 2% 1 Pack (2 Cloths) TOPICAL ONE (05:26)
[2018-03-30] MEDS ORDERED: Sodium Chlor 0.9% Inj 500 ML IV.SIG SCH (06:00)
[2018-03-30] MEDS ORDERED: ceFAZolin 2 GM Premix Inj 2 GM/50 ML PIGGYBACK IV.SIG SCH (06:00)
[2018-03-30] MEDS ORDERED: Bupivacaine/Epinephrine Inj 0.25% 50 ML Vial ONE (07:13)
--- NOTE | 2018-03-30 07:58 | P.OP ---
- Preoperative Diagnosis (1) Partial small bowel obstruction (2) Adhesion of intestine (3) Morbid obesity - Postoperative Diagnosis (1) Adhesion of intestine (2) Morbid obesity (3) Partial small bowel obstruction Procedure: dx lap, vi, sb resection, egd, sleeve revision Anesthesia: GETA Surgeon: Mynor Can MD Estimated blood loss (mL): 5 Pathology: none sent Operation and Findings: adhesions
[2018-03-30] MEDS ORDERED: Sugammadex Inj 200 MG/2 ML Vial IV.PUSH ONE (10:33)
[2018-03-30] MEDS ORDERED: diphenhydrAMINE HCl 12.5 MG/5 ML Elixir UDC PO PRN (11:21)
[2018-03-30] MEDS ORDERED: Post-op Orders (for Pharmacy) OTHER STA (11:21)
[2018-03-30] MEDS ORDERED: fentaNYL Citrate Inj 100 MCG/2 ML Ampul ONE ×2 (11:34)
[2018-03-30] MEDS ORDERED: *Meperidine Inj 25 MG/ML Vial PERIprocedural Use ONLY ONE (11:35)
[2018-03-30] MEDS ORDERED: *morphine SULFATE 4 MG/ML PERIprocedure ONLY ONE ×3 (11:35→12:15)
[2018-03-30] MEDS ORDERED: KCL 20 mEq/D5W/NaCl 0.45% Inj 1,000 ML ONE (11:43)
[2018-03-30] MEDS: KCL 20 mEq/D5W/NaCl 0.45% Inj 1,000 ML IV.CONT SCH ×3 (11:44→21:17)
[2018-03-30] MEDS: ceFAZolin Inj 1 GM in Sodium Chlor 0.9% Inj 100 ML IV.SIG SCH (17:00)
[2018-03-30] MEDS: Enoxaparin Inj 40 MG/0.4 ML Syringe SQ SCH (17:01)
[2018-03-30] MEDS: Morphine Inj 4 MG/ML Vial IV.PUSH PRN ×2 (17:02→21:18)
--- NOTE | 2018-03-30 18:16 | ECG ---
Date Performed: 03/30/2018 Time Performed: 06:56:25 PTAGE: 57 years EKG: Sinus rhythm INCOMPLETE RIGHT BUNDLE BRANCH BLOCK BORDERLINE ECG PREVIOUS TRACING : 05/27/2016 08.35 Since the previous tracing, no significant change noted DOCTOR: Ron Abernathy Interpretating Date/Time 03/30/2018 18:15:04
--- NOTE | 2018-03-30 21:36 | MP ---
cc: Mynor Can MD DATE OF OPERATION: 03/30/2018 PREOPERATIVE DIAGNOSES: 1. Morbid obesity. 2. History of bariatric surgery. 3. Partial bowel obstruction. POSTOPERATIVE DIAGNOSES: 1. Morbid obesity. 2. History of bariatric surgery. 3. Partial bowel obstruction. 4. Adhesions. PROCEDURE PERFORMED: 1. Diagnostic laparoscopy. 2. Laparoscopic lysis of adhesions, greater than 60 minutes. 3. Laparoscopic small-bowel resection with primary anastomosis. 4. Revision of sleeve gastrectomy. 5. Esophagogastroduodenoscopy. SURGEON: Mynor Can MD PRIMER PRESS OPERATOR: None. ANESTHESIA: GETA. IV FLUIDS: See anesthesia sheet. ESTIMATED BLOOD LOSS: 15 mL DRAINS: None. COMPLICATIONS: None. WOUND CLASSIFICATION: Clean/contaminated. SPECIMENS: Small bowel. FINDINGS: Decompressed and chronically dilated portion of small bowel, large sleeve gastrectomy. Multiple intra-abdominal adhesions. INDICATIONS FOR PROCEDURE: The patient is a 57-year-old male who presented with morbid obesity, history of sleeve gastrectomy. The patient noted to have a slow weight gain and noted to have chronic intermittent partial obstructions. The patient had been on a liquid diet, and decision was made for operative intervention. Discussed with the patient in detail. DETAILS OF PROCEDURE: The patient was taken to the operating suite, placed in the supine position. He was prepped and draped in the usual sterile fashion after induction of general endotracheal anesthesia. Brief timeout done stating correct patient, procedure, surgical site. We were all in agreement can this. Attention first directed to the left upper quadrant where local anesthetic was injected. A stab neck incision was made through a previous incisional scar. Abdomen was insufflated to 15 mmHg of pneumoperitoneum. On cursory inspection, there were multiple intra-abdominal adhesions. A left lower quadrant port, 5 mm, was placed followed by a left mid quadrant 12 mm port. Adhesiolysis was done with scissors and Harmonic scalpel. This was mobilized in order to obtain view of the anterior abdominal wall for further port placement. Supraumbilical port was placed. A 5 mm for camera port and a right upper quadrant 5 mm port were placed also. Multiple intra-abdominal small-bowel adhesions were noted. The patient noted to have decompressed distal bowel and somewhat chronically dilated small bowel. Adhesions lysed been between bowel in order to freely mobilize and allow for bowel continuity. Significant portion with stricture and kinking of small bowel. Evidence of partial obstruction was noted. A decision was made for resection in this area. Blue load Endo-TYLER stapler was used to transect this area. A window was made in the mesentery in order to facilitate this. Harmonic scalpel was used to transect the mesentery. This was done to the portion of chronically dilated bowel. The bowel was then placed in an EndoCatch bag and removed from the abdomen through the 12 port. The opposing sides of the bowel were obtained and then a ooaz-st-[id number] anastomosis with stay suture was placed. Common enterotomies were made. The Endo-TYLER blue load was used to make a [id number]-evh-ebbeprl layer. The fxsxnpe-fpl-lqsdhnb layer was closed with an Endo-TYLER blue load. A crotch stitch was placed, and the mesentery was closed with 0 Vicryl. Bowel noted to be in nice continuity at this point. Attention was directed to the sleeve gastrectomy. Sleeve was then insufflated of air noted to be significantly enlarged. Given the patient's history, decision was made for imbrication in order to resize the sleeve to appropriate sleeve gastrectomy size. A 2-0 Vicryl was intracorporeal suture was done to imbricate the greater curvature of the sleeve stomach in order to reduce the volume of the gastric sleeve. I broke scrub in order to do esophagogastroduodenoscopy. The Olympus scope was obtained and placed through the mouth, oropharynx, down the esophagus and into the sleeve gastrectomy stomach. The sleeve noted to be patent without evidence of stricturing. The sleeve noted to be more uniform in caliber and more characteristic of a sleeve gastrectomy. There is no evidence of obstruction again noted. The endoscope was removed, and I rescrubbed to completion of the procedure. Evicel was placed both at the anastomosis and at the sleeve gastrectomy stomach. Next, the patient flattened and pneumoperitoneum was removed. Ports were removed. The left upper quadrant 12 mm trocar was closed with 0 Vicryl [id number]; 4-0 Monocryl done on all subcuticular incisions. The patient tolerated the procedure well. There were no intraoperative complications. All lap and instrument counts were correct at the end of the procedure. Steri-Strips and sterile dressings were placed. The patient was actually taken stable to the PACU. MD Alannah Mendoza , 08:18 PM , 08:31 PM
[2018-03-31] MEDS: ceFAZolin Inj 1 GM in Sodium Chlor 0.9% Inj 100 ML IV.SIG SCH ×2 (00:16→08:20)
[2018-03-31] MEDS: Morphine Inj 4 MG/ML Vial IV.PUSH PRN (04:59)
[2018-03-31] MEDS: KCL 20 mEq/D5W/NaCl 0.45% Inj 1,000 ML IV.CONT SCH ×4 (05:00→21:11)
[2018-03-31 06:43] LABS: Baso % (Auto) 0.2 % (0.0-2.0); Eos # (Auto) 0.1 th/mm3 (0.0-0.4); Eos % (Auto) 0.9 % (0.0-4.0); Hematocrit 38.8 % (39.0-51.0); Hemoglobin 12.9 gm/dL (13.0-17.0); Lymph # (Auto) 1.8 th/mm3 (1.0-4.8); Mean Corpuscular HGB Conc 33.3 % (32.0-36.0); Mean Corpuscular Hemoglobin 27.3 pg (27.0-34.0); Mean Corpuscular Volume 82.2 fL (80.0-100.0); Mean Platelet Volume 7.5 fL (7.0-11.0); Mono # (Auto) 0.7 th/mm3 (0.0-0.9); Mono % (Auto) 7.9 % (0.0-8.0); Neut # (Auto) 6.8 th/mm3 (1.8-7.7); Platelet Count 294 th/mm3 (150-450); Red Blood Count 4.72 mil/mm3 (4.50-5.90); Red Cell Distribution Width 15.6 % (11.6-17.2); White Blood Count 9.4 th/mm3 (4.0-11.0)
[2018-03-31 07:06] LABS: Calcium 8.2 mg/dL (8.5-10.1); Carbon Dioxide 29.1 meq/L (21.0-32.0)
[2018-03-31] MEDS: Benzonatate 100 MG Capsule PO PRN ×2 (13:24→21:45)
[2018-03-31] MEDS ORDERED: Magnesium Citrate Liq 300 ML Bottle PO ONE (13:33)
[2018-03-31] MEDS ORDERED: Bisacodyl 10 MG Supp RECTAL ONE (13:34)
[2018-03-31] MEDS ORDERED: Morphine Sulfate 15 MG IR Tablet PO PRN (14:52)
[2018-03-31] MEDS: Enoxaparin Inj 40 MG/0.4 ML Syringe SQ SCH (15:23)
--- NOTE | 2018-03-31 16:19 | P.PNGS ---
Subjective Interval history: Ambulating in the hallways Tolerated lunch Physical Exam Vital signs: Vital Signs 03/30/18 20:00 03/31/18 00:00 03/31/18 04:00 Temperature 99.0 F 98.2 F 98.2 F Pulse Rate 79 67 66 Respiratory Rate 18 18 18 Blood Pressure 143/67 H 121/72 158/83 H Pulse Oximetry 97 96 99 03/31/18 08:00 03/31/18 12:00 Temperature 97.9 F 92 F L Pulse Rate 66 60 Respiratory Rate 17 17 Blood Pressure 140/88 99/49 L Pulse Oximetry 100 100 Intake & Output 03/30/18 03/31/18 03/31/18 18:59 06:59 18:59 Intake Total 2750 / 2750 2300 / 2300 1320 / 1320 Output Total 415 / 415 800 / 800 Balance 2335 / 2335 2300 / 2300 520 / 520 Weight 97.9 kg 97.9 kg Intake: IV 1250 / 1250 2300 / 2300 1100 / 1100 D5W/1/2NS + KCL 20 mEq Inj , 1999 / 1999 1000 / 1000 000 ML @ 125 mls/hr IV.CONT . Q8H JR Rx#:[id number] LR 1000 mL Inj 1,000 ML @ 30 1000 / 1000 mls/hr IV.SIG .Q24H JR Rx#: [id number] Ancef 2 GM Premix Inj 2 gm In 50 / 50 50 ml @ 100 mls/hr IV.SIG OPTICAL INSTRUMENT ASSEMBLER JR Rx#:[id number] Ancef Inj 1 GM In NS Inj 100 ML 100 / 100 100 / 100 100 / 100 @ 200 mls/hr IV.SIG Q8H JR Rx #:[id number] Flagyl 500 MG Inj 100 ML @ 100 100 / 100 200 / 200 mls/hr IV.SIG Q8H JR Rx#: [id number] Oral 700 / 700 220 / 220 Anesthesia Amount 800 / 800 Output: Urine 400 / 400 800 / 800 Estimated Blood Loss Other: Date of Last Bowel Movement 03/29/18 # Bowel Movements 0 0 Narrative: Alert and awake Abd: soft; minimally tender; mildly distended Results - Labs 03/31/18 06:12 03/31/18 06:12 Laboratory Results - last 24 hr 03/31/18 03/31/18 06:12 06:12 WBC 9.4 RBC 4.72 Hgb 12.9 L Hct 38.8 L MCV 82.2 MCH 27.3 MCHC 33.3 RDW 15.6 Plt Count 294 MPV 7.5 Neut % (Auto) 72.0 H Lymph % (Auto) 19.0 [place] % (Auto) 7.9 Eos % (Auto) 0.9 Baso % (Auto) 0.2 Neut # (Auto) 6.8 Lymph # (Auto) 1.8 [place] # (Auto) 0.7 Eos # (Auto) 0.1 Baso # (Auto) 0.0 WBC Differential . Differential Comment Auto diff final Sodium 140 Potassium 4.0 Chloride 104 Carbon Dioxide 29.1 Anion Gap 7 BUN 14 Creatinine 1.49 H Estimated GFR 49 L Random Glucose 83 Calcium 8.2 L Magnesium 2.0 Assessment and Plan - Plan 57 year old male POD1 dx lap; lap LES; lap SBR with primary anastomosis; revision of sleeve gastrectomy -Advance to regular diet -Pain control---restarted patient's oral Morphine as he takes at home -MOM/Mag citrate -Hopefully home this afternoon vs tomorrow
[2018-04-01] MEDS: KCL 20 mEq/D5W/NaCl 0.45% Inj 1,000 ML IV.CONT SCH (04:24)
[2018-04-01 08:35] VITALS: BP 140/93; PULSE 73; RESP 17; TEMP 97.5; O2SAT 98
--- NOTE | 2018-04-01 09:48 | P.PNGS ---
Subjective Patient reports: no new complaints, feels better, flatus Physical Exam Vital signs: Vital Signs 03/31/18 12:00 03/31/18 16:00 03/31/18 20:00 Temperature 92 F L 98 F 98.5 F Pulse Rate 60 78 74 Respiratory Rate 17 17 19 Blood Pressure 99/49 L 141/88 H 146/93 H Pulse Oximetry 100 99 97 04/01/18 00:00 04/01/18 04:00 04/01/18 08:00 Temperature 97.9 F 97.9 F 97.5 F L Pulse Rate 83 76 73 Respiratory Rate 16 18 17 Blood Pressure 129/77 156/95 H 140/93 H Pulse Oximetry 97 97 98 Intake & Output 03/31/18 04/01/18 04/01/18 18:59 06:59 18:59 Intake Total 1320 / 1320 2960 / 2960 Output Total 800 / 800 Balance 520 / 520 2960 / 2960 Weight 97.9 kg 99.8 kg Intake: IV 1100 / 1100 2000 / 2000 D5W/1/2NS + KCL 20 mEq Inj 1, 1000 / 1000 2000 / 2000 000 ML @ 125 mls/hr IV.CONT . Q8H JR Rx#:[id number] Ancef Inj 1 GM In NS Inj 100 ML 100 / 100 @ 200 mls/hr IV.SIG Q8H JR Rx #:[id number] Oral 220 / 220 960 / 960 Output: Urine 800 / 800 Other: # Voids 3 10 Date of Last Bowel Movement 03/29/18 # Bowel Movements 0 - Routine Respiratory Exam Present: CTA bilaterally - Routine Cardiovascular Exam Present: RRR - Routine Abdominal Exam Present: soft (mild distension, incisional tenderness) Results - Labs 03/31/18 06:12 03/31/18 06:12 Assessment and Plan - Plan s/p dx lap, lap vi, sb resection, sleeve revision, drinking over 60cc/30 min PLAN bariatric diet oob pain control tylenol fleets d/c home today
[2018-04-01] MEDS: Benzonatate 100 MG Capsule PO PRN (09:57)
[2018-04-01] MEDS ORDERED: Sod Phosphate/Sod Biphosphate (Adult) Enema 133 ML Bottle RECTAL ONE (11:00)
== END 2018-04-01 11:00 | disposition home or self-care (01) | DRG 331 ==
LOC: HSDC 05:08 → HSDI 12:16 → N07 13:45
PROVIDERS: ADMIT Surgery; ATTEND Surgery
PROC: LAPSCPY (ICD-10-PCS; 2018-03-30 07:43)
CPT/HCPCS: 80048; 83735; 85025; 88307; 93005; 94150; J0690; J1200; J1650; J2175; J2250; J2270; J2405; J2765; J3010; J3480; J7120; J8501